=== PATIENT | female | born 1980 | race Caucasian/White ===

== ENCOUNTER → 2016-11-12 | Outpatient (CLI) | payer OTHER ==
[2016-09-21 12:00] VITALS: BP 144/88
[~2016-11-12] MED LIST: HYDR-971 PO; TRAM50TA PO
--- NOTE | 2016-11-12 14:16 | EKG ---
[facility] [address] [place] [address] Test Date: 2016-11-12 Test Time: 14:22:05 Pat Name: ISI SALAMANCA Department: Room: Gender: F Furnace Mechanic: CORETTA : 1980 Requested By: RAFAELA POND Order Number: [id number] Reading MD: Measurements Intervals [place] Rate: 79 P: 30 [place]: 174 QRS: 8 QRSD: 76 T: 29 QT: 356 QTc: 409 Interpretive Statements SINUS RHYTHM NO SPECIFIC ECG ABNORMALITIES RI6.01 Compared to ECG 06/05/2014 09:37:39 No significant changes
[2016-11-12 14:29] LABS: BASO # 0.1 x10^3/uL (0.0-0.2); BASO % 1 % (0-3); EOS % 3 % (0-3); HEMATOCRIT 41.9 % (36.0-47.0); HEMOGLOBIN 14.1 g/dL (12.0-15.5); LYMPH # 2.8 x10^3/uL (1.0-4.8); LYMPH % 35 % (24-48); MEAN CORPUSCULAR HEMOGLOBIN 32 pg (25-35); MEAN CORPUSCULAR HGB CONC 34 g/dL (31-37); MEAN CORPUSCULAR VOLUME 94 fL (79-100); MONO % 6 % (0-9); NEUT % 55 % (31-73); PLATELET COUNT 180 x10^3/uL (140-400); RED BLOOD COUNT 4.49 x10^6/uL (3.50-5.40); RED CELL DISTRIBUTION WIDTH 13.9 % (11.5-14.5)
[2016-11-12 14:48] LABS: ALBUMIN 3.2 g/dL (3.4-5.0); ALBUMIN/GLOBULIN RATIO 0.9 (1.0-1.7); CALCIUM 8.6 mg/dL (8.5-10.1); CREATININE 0.7 mg/dL (0.6-1.0); GFR 94.7; POTASSIUM 3.6 mmol/L (3.5-5.1); TOTAL BILIRUBIN 0.5 mg/dL (0.2-1.0); TOTAL PROTEIN 6.7 g/dL (6.4-8.2)
[2016-11-12 14:52] LABS: BILIRUBIN,URINE SMALL (NEG); GLUCOSE,URINE NEGATIVE (NEG); NITRITE,URINE NEGATIVE (NEG); PH,URINE 6.5; PROTEIN,URINE NEGATIVE (NEG-TRACE)
--- NOTE | 2016-11-12 14:52 | RAD ---
EXAM: Chest, 2 views. HISTORY: Hysterectomy. Pain. COMPARISON: 06/05/2014. FINDINGS: Frontal and lateral views of the chest are obtained. There is no infiltrate, effusion or pneumothorax. The heart is normal in size. IMPRESSION: No acute pulmonary finding.
[2016-11-12 15:10] LABS: BACTERIA,URINE MODERATE /HPF (0-FEW); RBC,URINE OCC /HPF (0-2); SQUAMOUS EPITHELIAL CELL,UR MANY /LPF; WBC,URINE RARE /HPF (0-4)
== END | disposition home or self-care (01) ==
LOC: SURGPAT 13:40
PROVIDERS: ATTEND Obstetrics & Gynecology
DX: Z01.812 Encounter for preprocedural laboratory examination (principal)
CPT/HCPCS: 36415; 71020; 80053; 81001; 85027; 87086; 93005

== ENCOUNTER 2016-11-20 06:05 | Observation (INO) | payer OTHER ==
[2016-11-20] VITALS (12 sets, daily range): BP systolic 102–125; BP diastolic 66–80
[~2016-11-20] VITALS: Ht 162.6 cm; Wt 108.6 kg
[~2016-11-20 06:05] MED LIST changes: +CLINDAMYCIN 600MG PREMIX 50 ML IV ONE
[2016-11-20] MEDS ORDERED: MIDAZOLAM HCL 2 MG/2 ML VIAL. ONE (06:59)
[2016-11-20] MEDS ORDERED: PROPOFOL 20 ML IV ONE (06:59)
[2016-11-20] MEDS ORDERED: LIDOCAINE 2% 100 MG/5 ML DISP.SYRIN. ONE (06:59)
[2016-11-20] MEDS ORDERED: FENTANYL PF 250 MCG/5 ML VIAL. ONE (06:59)
[2016-11-20] MEDS ORDERED: DEXAMETHASONE SOD PHOS 20 MG/5 ML VIAL. ONE (06:59)
[2016-11-20] MEDS ORDERED: ONDANSETRON PF 4 MG/2 ML VIAL. ONE (06:59)
[2016-11-20] MEDS ORDERED: FENTANYL PF 100 MCG/2 ML VIAL. IV PRN ×2 (07:00)
[2016-11-20] MEDS ORDERED: LIDOCAINE 1% 1 ML SYRINGE. ID PRN (07:00)
[2016-11-20] MEDS ORDERED: PROCHLORPERAZINE 10 MG/2 ML VIAL. IV PRN (07:00)
[2016-11-20] MEDS ORDERED: BUPIVACAINE-EPI 0.25%-1:200000 50 ML VIAL. ONE (07:00)
[2016-11-20] MEDS ORDERED: ROCURONIUM 50 MG/5 ML VIAL. ONE ×2 (07:00→07:07)
[2016-11-20] MEDS ORDERED: IV RINGERS,LACTATED 1000ML 1,000 ML IV SCH (07:00)
[2016-11-20] MEDS ORDERED: ONDANSETRON PF 4 MG/2 ML VIAL. IV PRN (07:00)
[2016-11-20] MEDS ORDERED: ESTROGENS, CONJ VAGINAL CREAM 30GM TUBE. ONE (07:01)
[2016-11-20 07:07] LABS: NEG OBC UR NEG; POS OBC UR POS
[2016-11-20] MEDS ORDERED: ACETAMINOPHEN INTRAVENOUS 100 ML IV ONE (07:16)
[2016-11-20] MEDS ORDERED: SCOPOLAMINE 1.5MG PATCH. TD ONE (07:22)
[2016-11-20] MEDS ORDERED: PHENYLEPHRINE in 0.9% NACL PF 1 MG/10 ML DISP.SYRIN. IV ONE (07:49)
[2016-11-20] MEDS ORDERED: GLYCOPYRROLATE 1 MG/5 ML VIAL. ONE (08:33)
[2016-11-20] MEDS ORDERED: NEOSTIGMINE METHYLSULFATE 5 MG/5 ML SYRINGE. ONE (08:34)
[2016-11-20] MEDS ORDERED: ZOLPIDEM 5 MG TABLET. PO PRN (09:00)
[2016-11-20] MEDS ORDERED: ESTRADIOL WEEKLY 0.1 MG PATCH. TD SCH (09:00)
[2016-11-20] MEDS ORDERED: KETOROLAC TROMETHAMINE 30 MG/ML SYRINGE. IV PRN (09:00)
[2016-11-20] MEDS ORDERED: DIPHENHYDRAMINE HCL 25 MG CAPSULE PO PRN (09:00)
[2016-11-20] MEDS ORDERED: HYDROCODONE/APAP 5/325MG TABLET. PO PRN (09:00)
[2016-11-20] MEDS ORDERED: LACTULOSE 20 GM/30 ML SOLUTION. PO PRN (09:00)
[2016-11-20] MEDS ORDERED: NALOXONE 0.4 MG/ML VIAL. IV PRN (09:00)
[2016-11-20] MEDS ORDERED: MAGNESIUM HYDROXIDE 2,400 MG/30 ML ORAL.SUSP. PO PRN (09:00)
[2016-11-20] MEDS ORDERED: CALCIUM CARBONATE 500 MG TAB.CHEW PO PRN (09:00)
--- NOTE | 2016-11-20 09:02 | PDOC ---
BRIEF OPERATIVE NOTE Date: Nov 20, 2016 Pre-Op Diagnosis menorrhagia, dysmenorrhea, chronic pelvic pain Post-Op Diagnosis same Procedure Performed LAVH/BSO Surgeon Dr. Sera Pond Cardiopulmonary Physical Therapist Dr. Selma Hatfield Anesthesiologist see anesthesia Anesthesia Type: General Blood Loss 70cc IV Fluid see anesthesia Urine Output 120cc clear via valentine Specimens Obtained cervix, uterus, bilateral tubes and ovaries Findings mild left sided adhesions to left IP ligament; small bilateral ovaries; RV uterus, normal appendix Complications none Additional Remarks [id number] SERA POND MD Nov 20, 2016 09:02
[2016-11-20] MEDS: HYDROMORPHONE 2 MG/ML VIAL. IV PRN ×5 (09:03→15:24)
[2016-11-20] MEDS: MORPHINE SULFATE 2 MG/ML DISP.SYRIN. IV PRN ×3 (09:25→15:26)
[2016-11-20] MEDS: NICOTINE 21MG PATCH. TD SCH (11:35)
[2016-11-20] MEDS: OXYCODONE/APAP 5/325 TABLET. PO PRN ×3 (12:19→23:12)
--- NOTE | 2016-11-20 15:17 | PDOC ---
SURGICAL PROGRESS NOTE Subjective Called to see the patient regarding vaginal bleeding. Ruth (nurse) called me saying pt got up to use the restroom, had been doing well for a while after surgery, eating, drinking and using restroom, even was asking about going home, but got up to use the restroom and heard a "pop" and stool full of blood. Initially called and asked pt to rest, check a hgb in 1-2 hours and re-evaluate , but Ruth called me back saying she saw large clots and was uncomfortable watching her with the amount of blood she was seeing, so I asked her to get her ready with stirups, speculum, gown, stitch,etc and I would be in. Upon my arrival here about 215 pt was up and ready and cleaned up they estimated her total blood loss about 200cc. Upon insertion of the speculum there was no active bleeding, no large clots, cuff appeared intact and I could probe it with large white Q tips and no active bleeding seen; watched for 5-10min and nothing. Took spec out, walked away to order stat sonogram and wait for premarin cream and vag packing and then reexamined about 15min later and still no accumulation and nothing pooling in vagina with no active bleeding or clots. I have no been here almost 45 min and seen no active bleeding, perineum dry and all spec exams negative. Will get sonogram to make sure nothing bleeding internally Vital Signs Vital Signs Date Time Temp Pulse Resp B/P Pulse Ox O2 Delivery O2 Flow Rate FiO2 11/20/16 10:10 97.9 78 18 116/70 92 Room Air 97.9 11/20/16 09:03 10.0 PATIENT HAS A ALCARAZ: No General: Alert, Oriented X3, Cooperative, mild distress HEENT: Atraumatic Abdomen: Soft, Other (all port sites c/d/i) Extremities: No clubbing, No cyanosis, No tenderness/swelling Skin: No rashes, No breakdown Neuro: Normal speech Psych/Mental Status: Mental status NL, Mood NL Labs Laboratory Tests Test 11/20/16 06:10 Urine Test Negative (NEG) Laboratory Tests Test 11/20/16 06:10 Urine Test Negative (NEG) Problem List Problems Medical Problems: (1) Chronic pelvic pain in female Status: Acute (2) Dysmenorrhea Status: Acute (3) Irregular menstrual bleeding Status: Acute (4) Menorrhagia Status: Acute Assessment/Plan POD #0 s/p LAVH/bso postoperative bleeding stat sono at bedside range scientist thinks questionable area 5cm at greatest that could be a small clot; no active bloodflow to area, no swirling or anything to suggest active cuff looked good too on sono talked with pt and range scientist and pt comfortable with no rescoping at this point and repeat sonogram in 4 hours to make sure stable and not growing if stable then would not take back to operating room will check hgb now and again in 4 hours also to make sure it is also stable Problems: RAFAELA POND MD Nov 20, 2016 15:17
--- NOTE | 2016-11-20 15:37 | OP ---
DATE OF SURGERY: 11/20/2016 PREOPERATIVE DIAGNOSES: Menorrhagia, dysmenorrhea, irregular bleeding with chronic pelvic pain, and recurrent ovarian cysts. POSTOPERATIVE DIAGNOSES: Menorrhagia, dysmenorrhea, irregular bleeding with chronic pelvic pain, and recurrent ovarian cysts. PROCEDURE: Laparoscopic assisted vaginal hysterectomy, bilateral salpingo-oophorectomy. SURGEON: Rafaela Orta MD, and Selma Hatfield MD. ANESTHESIA: General endotracheal. ESTIMATED BLOOD LOSS: 70 mL. URINE OUTPUT: 120 mL clear via Kelly catheter. FLUIDS: Please see Anesthesia records. SPECIMENS: Cervix, uterus, bilateral tubes and ovaries. COMPLICATIONS: None. FINDINGS: Very mild left sided adhesions to the left IP ligament, small bilateral cysts on the ovaries, retroverted uterus, normal appendix. DESCRIPTION OF PROCEDURE: This patient was taken to the operating room where general anesthesia was placed. The [facility] The patient's abdomen and vagina were prepped and draped in the normal sterile fashion. A Kelly catheter had been previously inserted under sterile technique. At this point, a timeout was performed. A bivalve speculum was placed in the patient's vagina. Single tooth tenaculum was used to grasp the anterior lip of the cervix. Approximately 10 mL of 0.25% Marcaine with epinephrine was used to circumferentially inject around the cervix for both hemodissection and hemostatic purposes later. The Valtchev uterine manipulator was then placed through the endocervical os, locked on the single tooth tenaculum, and the bivalve speculum was then removed. Top gloves were discarded and changed. Attention was then turned to the abdomen where a small infraumbilical skin incision was made over the previous existing scar. A curved Latricia was used to dissect through the subcuticular layer to the fascia. The 5 mm Visiport was used to directly enter the abdominal cavity. Opening patient pressure was 8 mmHg. Direct abdominal placement was confirmed via the laparoscope. Carbon dioxide gas was used to then appropriately insufflate the abdominal cavity to maintain a pressure of 15 mmHg. The patient was placed in Trendelenburg position where right and left lower quadrant ports were placed under direct visualization with 5 mm Ethicon atraumatic ports without difficulty. The LigaSure Advance was used to then go in and cauterize and cut the left round ligament, creating a window in the mesosalpinx, creating the bladder flap sharply across with the monopolar tip, elevating the left tube and ovary, using the [place] to gently pull back the adhesions on the left IP ligament down and out of the way, and then finding the ureter coursing very deep in the pelvis on this side, staying high on the IP ligament, cauterizing and cutting, taking the left tube and ovary per patient request, meeting to that opening in the mesosalpinx, then going down and skeletonizing getting down to the uterines and cauterizing them x 2 and cutting them as well on this side. Exact same thing was done on the right side first starting at the round ligament, cauterizing and cutting, creating that window in the mesosalpinx, going down and further meeting the bladder flap anteriorly, elevating the right tube and ovary, again finding the ureter coursing a little bit higher on this side, but still very low from where we were going on the pelvic wall, staying high on the IP ligament right under the ovary, cauterizing and cutting it, again getting to that window and then skeletonizing and getting the uterines on this side. The uterus did levy very well and then crossing contralaterally, staying vertical and hugging the cervix, making sure the bladder was down, going down to the uterosacral ligaments through the cardinal and broad ligaments on both sides, cauterizing and cutting with the LigaSure Advance. Once this was done, everything was removed from the abdomen and attention was turned vaginally. The single tooth and Valtchev were removed. A weighted speculum was placed in the patient's vagina. Thyroid Kamilah clamps were placed on the anterior and posterior lips of the cervix respectively. A scalpel was used to make a circumferential incision in the cervix. The anterior cul-de-sac was actually sharply entered and the bladder blade was reinserted inside this. The cervix was elevated and the posterior cul-de-sac was sharply entered with the Chung scissors and a #0 Vicryl stitch was used to secure the posterior peritoneum to the vaginal cuff here and tagged with a curved Latricia clamp and the needle was cut and passed off. The short weighted speculum was removed and replaced with a long weighted Alanna speculum. At this point, curved Latosha clamps x 2 were placed on the patient's left uterosacral ligament. They were doubly clamped with clifton Reina with curved Chung scissors and suture ligated x 2 with #0 Vicryl. The second one was taken through the vaginal cuff securing the uterosacral ligament to the vaginal cuff and it was tagged with a straight Latricia clamp and the needle was cut and passed off. This was done exactly the same on the patient's right side, double clamping the uterosacrals with curved Latosha's, cutting with Chung scissors, suture ligating x 2 with #0 Vicryl and again taking the second one through the vaginal cuff securing uterosacral ligament to the vaginal cuff, tagging it with a straight Latricia clamp and cutting and passing off the needle. The remaining pedicles on both sides were delineated with the curved clamps and they were cauterized with the vaginal LigaSure Max and cut on both sides. This freed up the entire uterus. The cervix, uterus, bilateral tubes and ovaries were passed off in toto for permanent pathology. The long weighted speculum was removed and replaced with a short weighted. A sponge stick was used to examine the pedicles. The anterior bladder peritoneum was grasped with a long Allis. 2-0 Vicryl was taken through the anterior bladder peritoneum, left uterosacral ligament, posterior peritoneum, and right uterosacral ligament, thus closing the peritoneum in a pursestring like fashion. The right and left uterosacral tags were cut at this point. Only the vaginal cuff tag remained. A new full length 2-0 Vicryl was used to close the cuff in an anterior to posterior running locked fashion and it was tied to that posterior tag at the end. The vaginal cuff was hemostatic. All instruments were removed from the vagina. All gloves were discarded and changed. . Copious irrigation revealed hemostasis. The right and left pericolic gutters were clear. The cul-de-sac was clear. We saw a normal appendix. Everything looked good, so Tisseel was placed over all the pedicles. The right and left lower quadrant ports were removed under direct visualization. These 2 were hemostatic. Prior to looking, we did look at the umbilical port as she had a little bit of fatty tissue around it. It was just her anterior abdominal wall. There were no adhesions, nothing there, so we had already checked this port and made sure it was clear. Gas was released from the umbilical port. All three port sites were closed with 4-0 nylon at the level of the skin and injected with a total of 10 mL of local. RAFAELA ORTA MD DR: DAVE/anjali JOB#: [id number] / [id number]
[2016-11-20] MEDS: ESTROGENS, CONJ VAGINAL CREAM 30GM TUBE. VG SCH (15:50)
--- NOTE | 2016-11-20 16:12 | RAD ---
Indication post laparoscopic hysterectomy. Vaginal bleeding. Evaluate for bleeding. Transabdominal scans were obtained. This was supplemented with additional translabial imaging There is a hypoechoic nonperistaltic mass just to the right of the uterine bed measuring approximately 5 cm in greatest dimension. The etiology is unclear but in the proper clinical setting this could represent a small hematoma. Significant free fluid in the pelvis was not seen. IMPRESSION: 5 cm mass in the pelvis of uncertain etiology but, in the proper clinical setting, would be compatible with a hematoma. Significant free fluid in the pelvis is not seen
--- NOTE | 2016-11-20 20:26 | RAD ---
PROCEDURE Limited pelvic ultrasound. HISTORY Followup hematoma. Status post laparoscopic hysterectomy. Postoperative bleeding. COMPARISON Pelvic ultrasound earlier same day at 1500 hours. FINDINGS Transabdominal imaging was performed. Again seen to the right of midline is complex fluid collection in the pelvis. This now measures 9.1 x 6.9 x 6.6 centimeters (previously 2.1 x 2.7 x 2.8 centimeters). There is no internal vascularity. This is favored represent enlargement of hematoma. There is now seen within the left hemipelvis a pocket of free fluid which measures 5.1 x 4.3 x 3.5 centimeters. IMPRESSION Interval enlargement of pelvic hematoma. Electronically signed by: Graeme Perea MD (Nov 20, 2016 20:26:03)
[2016-11-20] MEDS: ONDANSETRON PF 4 MG/2 ML VIAL. IV PRN (22:21)
[2016-11-20] MEDS: MAG HYDROX/AL HYDROX/SIMETH 30 ML ORAL.SUSP PO PRN (22:21)
[2016-11-21] VITALS (8 sets, daily range): BP systolic 99–119; BP diastolic 59–87
[2016-11-21] MEDS: MORPHINE SULFATE 2 MG/ML DISP.SYRIN. IV PRN ×4 (02:14→22:23)
[2016-11-21] MEDS: ONDANSETRON PF 4 MG/2 ML VIAL. IV PRN ×2 (05:16→22:23)
--- NOTE | 2016-11-21 06:21 | RAD ---
Ultrasound pelvis Indication: [Follow up for hematoma Comparison: Pelvic ultrasound from 11/20/2016 Technique: Multiple real-time grayscale sonographic images were obtained over the pelvis. Findings: Again noted are pelvic fluid collections. The fluid collection in the right hemipelvis is heterogeneous and now measures 12.3 x 12.1 x 10.6 centimeters compared with 9.1 x 6.9 x 6.6 centimeters. The left pelvic fluid collection now measures 7.0 x 4.8 x 3.4 centimeters compared with 5.1 x 4.3 x 3.5 centimeters. Impression: Pelvic fluid collections felt to represent hematomas appear to be enlarging when compared to yesterday's exam. Electronically signed by: Adonay Frankel (Nov 21, 2016 06:18:59)
[2016-11-21 06:52] LABS: CALCIUM 8.6 mg/dL (8.5-10.1); CREATININE 0.7 mg/dL (0.6-1.0); GFR 94.7
[2016-11-21] MEDS ORDERED: IV RINGERS,LACTATED 1000ML 1,000 ML IV SCH ×2 (08:27→19:00)
[2016-11-21] MEDS ORDERED: LIDOCAINE 1% 1 ML SYRINGE. ID PRN ×2 (08:30→19:00)
[2016-11-21] MEDS ORDERED: FENTANYL PF 100 MCG/2 ML VIAL. IV PRN ×3 (08:30→19:00)
[2016-11-21] MEDS ORDERED: HYDROMORPHONE 2 MG/ML VIAL. IV PRN ×2 (08:30→19:00)
[2016-11-21] MEDS ORDERED: MORPHINE SULFATE 2 MG/ML DISP.SYRIN. IV PRN ×2 (08:30→19:00)
[2016-11-21] MEDS ORDERED: PROCHLORPERAZINE 10 MG/2 ML VIAL. IV PRN ×2 (08:30→19:00)
[2016-11-21] MEDS ORDERED: ONDANSETRON PF 4 MG/2 ML VIAL. IV PRN ×2 (08:30→19:00)
--- NOTE | 2016-11-21 08:31 | PDOC ---
SURGICAL PROGRESS NOTE Subjective pt stable, hungry no active bleeding. Up to chair and steady on feet Vital Signs Vital Signs Date Time Temp Pulse Resp B/P Pulse Ox O2 Delivery O2 Flow Rate FiO2 11/21/16 05:33 18 Room Air 11/21/16 05:30 97.9 83 112/74 99 97.9 11/20/16 09:03 10.0 I&O Intake and Output 11/21/16 07:00 Intake Total 160 ml Output Total 490 ml Balance -330 ml Intake Oral 160 ml Output Urine Total 490 ml # Voids 4 PATIENT HAS A ALCARAZ: No General: Alert HEENT: Atraumatic Heart: Regular rate Abdomen: Soft, No tenderness, Other (all port sites c/d/i) Extremities: No clubbing, No cyanosis, No edema Skin: No rashes, No breakdown Neuro: Normal gait, Normal speech Psych/Mental Status: Mental status NL, Mood NL Labs Laboratory Tests Test 11/20/16 06:10 11/20/16 15:42 11/20/16 18:20 11/21/16 05:10 Urine Test Negative (NEG) Hematocrit 36.4% (36.0-47.0) 36.9% (36.0-47.0) 31.1% (36.0-47.0) Sodium Level 140mmol/L (136-145) Potassium Level 4.0mmol/L (3.5-5.1) Chloride Level 103mmol/L (98-107) Carbon Dioxide Level 27mmol/L (21-32) Anion Gap 10 (6-14) Blood Urea Nitrogen 10mg/dL (7-20) Creatinine 0.7mg/dL (0.6-1.0) Estimated GFR (Cockcroft-Gault) 94.7 Glucose Level 121mg/dL (70-99) Calcium Level 8.6mg/dL (8.5-10.1) Laboratory Tests Test 11/20/16 15:42 11/20/16 18:20 11/21/16 05:10 Hematocrit 36.4% (36.0-47.0) 36.9% (36.0-47.0) 31.1% (36.0-47.0) Sodium Level 140mmol/L (136-145) Potassium Level 4.0mmol/L (3.5-5.1) Chloride Level 103mmol/L (98-107) Carbon Dioxide Level 27mmol/L (21-32) Anion Gap 10 (6-14) Blood Urea Nitrogen 10mg/dL (7-20) Creatinine 0.7mg/dL (0.6-1.0) Estimated GFR (Cockcroft-Gault) 94.7 Glucose Level 121mg/dL (70-99) Calcium Level 8.6mg/dL (8.5-10.1) I have reviewed the following sono, nursing, labs, vitals Cardiovascular: No pertinent hx Pulmonary: No pertinent hx GI: No pertinent hx Heme/Onc: No pertinent hx Psych: No pertinent hx Renal/: No pertinent hx Endocrine: No pertinent hx Dermatology: No pertinent hx Problem List Problems Medical Problems: (1) Chronic pelvic pain in female Status: Acute (2) Dysmenorrhea Status: Acute (3) Irregular menstrual bleeding Status: Acute (4) Menorrhagia Status: Acute Assessment/Plan POD#1 s/p LAVH/BSO had PO bleed yesterday, packing removed and was bone dry this morning, no further vaginal bleeding at all all abdominal port sites all c/d/i but sonogram shows increasing right and left hematomas initially yesterday afternoon had right side 5cm, then last night right side grew to 9.1 and added a left fluid colleciton at 5cm now this morning right side went from 9 to 12.3 and left side went from 5 to 7 long talk with patient and her about options since still very stable of watching until this afternoon and repeating vs. scope either way we discussed keeping her here overnight and watching her and checking one more time in the morning to make sure stable then d/c hopefully tomorrow they chose scope so it is scheduled for 4pm this afternoon and will eat breakfast then NPO after that for repeat operative scope with evacuation of blood clot and look for any source of bleeding Problems: RAFAELA POND MD Nov 21, 2016 08:31
[2016-11-21] MEDS: SIMETHICONE 80 MG TAB.CHEW PO PRN (08:43)
[2016-11-21] MEDS: OXYCODONE/APAP 5/325 TABLET. PO PRN ×3 (08:43→23:51)
[2016-11-21] MEDS ORDERED: PROCHLORPERAZINE 10 MG/2 ML VIAL. IV ONE (09:15)
[2016-11-21] MEDS ORDERED: SEVOFLURANE 61 TO 120 MINUTES. IH ONE (11:24)
[2016-11-21] MEDS ORDERED: MIDAZOLAM HCL 2 MG/2 ML VIAL. ONE (11:24)
[2016-11-21] MEDS ORDERED: GLYCOPYRROLATE 1 MG/5 ML VIAL. ONE (11:25)
[2016-11-21] MEDS ORDERED: FENTANYL PF 100 MCG/2 ML VIAL. ONE ×4 (11:25→18:46)
[2016-11-21] MEDS ORDERED: PROPOFOL 20 ML IV ONE (11:25)
[2016-11-21] MEDS ORDERED: LIDOCAINE 2% 100 MG/5 ML DISP.SYRIN. ONE ×2 (11:25→18:11)
[2016-11-21] MEDS ORDERED: NEOSTIGMINE METHYLSULFATE 5 MG/5 ML SYRINGE. ONE (11:25)
[2016-11-21] MEDS ORDERED: ONDANSETRON PF 4 MG/2 ML VIAL. ONE (11:25)
[2016-11-21] MEDS ORDERED: KETOROLAC 60 MG/2 ML SYRINGE FOR OR. ONE (11:26)
[2016-11-21] MEDS ORDERED: DEXAMETHASONE SOD PHOS 20 MG/5 ML VIAL. ONE ×2 (11:26→16:16)
[2016-11-21] MEDS ORDERED: ROCURONIUM 50 MG/5 ML VIAL. ONE (11:30)
[2016-11-21] MEDS ORDERED: SUCCINYLCHOLINE 200 MG/10 ML VIAL. ONE (14:48)
[2016-11-21] MEDS ORDERED: BUPIVACAINE-EPI 0.25%-1:200000 MPF 30 ML VIAL. ONE (14:59)
[2016-11-21] MEDS: 0.9 % SODIUM CHLORIDE 10 ML DISP.SYRIN. IV PRN (15:00)
[2016-11-21] MEDS ORDERED: CLINDAMYCIN PREMIX 600 MG/50 ML BAG IV ONE (16:11)
[2016-11-21] MEDS ORDERED: ESMOLOL 100 MG/10 ML VIAL. IV ONE (16:16)
--- NOTE | 2016-11-21 18:34 | PDOC ---
BRIEF OPERATIVE NOTE Date: Nov 21, 2016 Pre-Op Diagnosis postoperative hematoma Post-Op Diagnosis same Procedure Performed operative laparoscopy with evacuation of pelvic hematoma and exam of abdominal cavity Surgeon Dr. Sera Pond Whistle P[employer] Dr. Selma Hatfield Anesthesiologist Dr. Guzman Anesthesia Type: General Blood Loss 500cc clot evacuated IV Fluid see anesthesia records Urine Output straight cath prior to procedure Specimens Obtained hematoma sucked out but nothing sent Findings 500cc generalized hematoma; gaping umbilical port once blood clot sucked out no evidence of any active bleeding only thing that even looked remotely suspicious was the umbilical port so 0- vicryl stitch placed with PMI Complications none Additional Remarks [id number] SERA POND MD Nov 21, 2016 18:34
[2016-11-21] MEDS ORDERED: PROCHLORPERAZINE 10 MG/2 ML VIAL. ONE (18:46)
[2016-11-21] MEDS: FENTANYL PF 100 MCG/2 ML VIAL. IV PRN ×4 (19:05→19:55)
[2016-11-21] MEDS: DIPHENHYDRAMINE 50 MG/ML VIAL IV PRN (20:25)
[2016-11-21] MEDS: NICOTINE 21MG PATCH. TD SCH (20:25)
[2016-11-21] MEDS: ESTROGENS, CONJ VAGINAL CREAM 30GM TUBE. VG SCH (21:00)
[2016-11-21] MEDS: MAG HYDROX/AL HYDROX/SIMETH 30 ML ORAL.SUSP PO PRN (21:21)
[2016-11-22] MEDS: MORPHINE SULFATE 2 MG/ML DISP.SYRIN. IV PRN ×2 (01:06→06:28)
[2016-11-22 01:10] VITALS: BP 109/72
[2016-11-22] MEDS ORDERED: MORPHINE SULFATE 2 MG/ML DISP.SYRIN. IV PRN (01:30)
[2016-11-22] MEDS: DIPHENHYDRAMINE 50 MG/ML VIAL IV PRN (02:27)
[2016-11-22] MEDS: MAG HYDROX/AL HYDROX/SIMETH 30 ML ORAL.SUSP PO PRN (02:27)
[2016-11-22 02:30] VITALS: BP 114/66
[2016-11-22 04:25] VITALS: BP 123/74
[2016-11-22] MEDS: 0.9 % SODIUM CHLORIDE 10 ML DISP.SYRIN. IV PRN ×2 (04:25→06:29)
[2016-11-22 04:46] LABS: BASO % 0 % (0-3); EOS % 0 % (0-3); HEMATOCRIT 27.5 % (36.0-47.0); HEMOGLOBIN 9.1 g/dL (12.0-15.5); LYMPH # 1.7 x10^3/uL (1.0-4.8); LYMPH % 17 % (24-48); MEAN CORPUSCULAR HEMOGLOBIN 32 pg (25-35); MEAN CORPUSCULAR HGB CONC 33 g/dL (31-37); MEAN CORPUSCULAR VOLUME 95 fL (79-100); MONO % 8 % (0-9); NEUT % 76 % (31-73); PLATELET COUNT 164 x10^3/uL (140-400); RED BLOOD COUNT 2.88 x10^6/uL (3.50-5.40); RED CELL DISTRIBUTION WIDTH 14.1 % (11.5-14.5); WHITE BLOOD COUNT 9.8 x10^3/uL (4.0-11.0)
[2016-11-22] MEDS: SIMETHICONE 80 MG TAB.CHEW PO PRN (08:42)
[2016-11-22] MEDS: OXYCODONE/APAP 5/325 TABLET. PO PRN (08:42)
--- NOTE | 2016-11-22 09:56 | OP ---
DATE OF SURGERY: 11/21/2016 PREOPERATIVE DIAGNOSIS: A postoperative increasing hematoma seen on sonogram after a postoperative bleed yesterday afternoon. POSTOPERATIVE DIAGNOSIS: A postoperative increasing hematoma seen on sonogram after a postoperative bleed yesterday afternoon. PROCEDURE: An operative laparoscopy with evacuation of a pelvic hematoma and exam of the intra-abdominal cavity. SURGEON: Dr. Rafaela Pond STAINING MACHINE OPERATOR: Selma Hatfield MD ANESTHESIOLOGIST: Dr. Mills ANESTHESIA: General. ESTIMATED BLOOD LOSS: 500 mL of hematoma evacuated. No active bleeding was seen. IV FLUIDS: Please see anesthesia records. URINE OUTPUT: A straight cath prior to procedure. SPECIMEN OBTAINED: Just a hematoma sucked out, but nothing was sent for pathology. FINDINGS: A 500 mL of generalized hematoma. The pelvic cuff was hemostatic. There was no active bleeding at all from the cuff or any of the sites down in the pelvis. The right and left pericolic gutters looked clear. The right and left lower quadrant ports were clear. The only thing that looked remotely suspicious was, and yesterday we even notice there was a little bit of gaping at the umbilical port like subcuticular fat coming down around it, I think yesterday I even dictated that, it looked like there might have been an adhesion or something because we kept seeing some fat or some yellow around the port, and when we looked up at it, it was just like a subcuticular fat coming down around the umbilical port. The umbilical port was a little bit larger and we could see into the subcutaneous and it kept coming back the port there and it kept insufflating the subcutaneous when the port would pull back, so that was the only thing that was even remotely suspicious and it was kind of a little bit possible drip, I mean nothing was actively seen bleeding, but it just looked a little bit different and suspicious because I could see into the subcutaneous and you could see the area below, so at the end after doing everything and evacuating everything and looking at everything else, we did go ahead and get a PMI and put a # 0 Vicryl stitch in this umbilical area just as a precautionary to have an extra thing to close it and make sure there was nothing open or bleeding at all here, but everything else was hemostatic. We did end up putting just as again precautionary measure not because anything was bleeding, but we put some more Edgar over the cuff just to make sure that we could actually still see some of the Tesio from yesterday that we put more Edgar down just to make sure it was okay and there was nothing going on. DESCRIPTION OF PROCEDURE: This patient was taken to the operating room where general anesthesia was placed. The patient was placed in a dorsal lithotomy position in [facility]. The patient's abdomen and vagina were prepped and draped in the normal sterile fashion and a straight cath urine was performed. At this point, I did insert a speculum to look at the cuff absolutely hemostatic, cuff looked good. I did put a sponge stick in the vagina. Top gloves were discarded and changed. Attention was turned to the abdomen. The umbilical port and right lower quadrant port sutures were clipped. I left the left wound closed. So, I ended up using a Latricia clamp and just reopening the same incision and putting the umbilical port in, watched the right lower quadrant port come in. The right lower quadrant port was hemostatic. There was nothing there before coming in, so it was dry, I could see that immediately. There was definitely a large hematoma in the pelvis, but I was able to get enough gas and see that come in where I could at least start irrigating with the suction chief engineer through the right lower quadrant port. Once I was able to do that, I was able to see the left port as well, it was also hemostatic, so it was clipped and I got another port in 5 mm, these were all 5 mm disposable Ethicon port, so I could get like [place] or probe to retract with. The only port I could not clearly see when I tried to move the camera to another port was the umbilical port because, like I said, it kept kind of gaping open and I could see the subcutaneous and I kept popping back and get my camera bloody, so I could say that was the only one that was even remotely suspicious and that was probably because it was going into the subcutaneous area and then a larger opening, but still there is wet staying in, so that is why at the end we did end up putting a stitch in there, but that was the only one that was even remotely suspicious for any kind of bleeding. I looked at the right upper quadrant, the right and left pericolic gutters once the clot was evacuated. I even called Dr. Hatfield after doing this for 30-40 minutes and getting it all sucked out just to get a second pair of eyes and make sure she did not see anything bleeding that I did not and have her look at this umbilical area with me better and get another pair of hands because, unfortunately due to the patient's body habitus, the ports kept coming out. I ended up getting too long 5 mm ports, but after insufflating the subcutaneous a few times through that umbilical port moving around and not being able to move it adequately to see in the upper quadrants and stuff, it was hard to get him to stay in, so I ended up putting a fourth suprapubic port in. I ended up using the 3 from yesterday at the umbilical right and left lower quadrant, I ended up putting as a suprapubic port in as well under direct visualization and that way I could get a different look and a better look at that umbilical one from a clean new viewpoint and not right next to it, so I did that and I called her in and she looked at everything again. I evacuated 500 mL of blood clot and did no irrigation prior to her coming. When she got there, she looked again herself as an independent pair of eyes and could not find anything bleeding either, did agree the only thing that looked remotely suspicious was the umbilical port, but again, she did not see anything actively bleeding from that either, but just to be sure we both agreed that putting a stitch in here would probably be a good idea, so we got the PMI and we did a # 0 Vicryl stitch and put it through and we used the Maryland to hold it and pull it through and tied the fascia, closed the tear, and then we looked at it again leaving the camera and we got a much better look once it was closed and there was nothing actively bleeding from this at all now and it looked better, but prior to doing all that, like I said, she examined again the right upper quadrant, right and left pericolic gutter, the cuff, everything else herself, and she did some irrigation, so we put ____ of irrigation as well once she got there and irrigated. After the irrigation and after we can find anything active, we decided to go ahead and place Edgar over the cuff, it could not hurt, and all the pedicle sites down there, we did that, and then, we did the PMI closure of the umbilical port and we re-examined the right and left lower quadrant ports. The umbilical port was closed at this point, so we were using the suprapubic. We ended up moving the camera back to the right lower quadrant port because we had watched it came out a few times and put it in, I knew it was not bleeding even on entry, so the left one came out and the umbilical port at this point was closed and we watched the suprapubic come out as it was the new one and made sure it was clear and it was still. Nothing was re-accumulating in the pelvis. After sucking it out and watching it for a long time and gas was released from that right lower quadrant port, all four port sites were closed with 4-0 nylon at the skin and injected with a total of 10 mL of the local. The vaginal sponge stick was taken out and it was dry as well. The patient was awakened from anesthesia and is being taken to recovery room in stable condition. RAFAELA POND MD DR: DAVE/anjali JOB#: [id number] / [id number]
--- NOTE | 2016-11-22 10:54 | PDOC ---
SURGICAL PROGRESS NOTE Subjective Doing well without complaints. Voiding without catheter. Nausea gone. Ambulating well and no more vaginal bleeding at all. Wants to go home. wanting her to have another sono before leaving since blood count did not drop initially when had hematoma Vital Signs Vital Signs Date Time Temp Pulse Resp B/P Pulse Ox O2 Delivery O2 Flow Rate FiO2 11/22/16 08:42 18 11/22/16 06:28 Room Air 11/22/16 04:25 98.0 74 123/74 98.0 11/21/16 22:25 97 11/21/16 18:40 10 I&O Intake and Output 11/22/16 07:00 Intake Total 2680 ml Output Total 600 ml Balance 2080 ml Intake Oral 680 ml IV Total 2000 ml Output Urine Total 100 ml Estimated Blood Loss 500 ml # Voids 8 PATIENT HAS A ALCARAZ: No General: Alert, Oriented X3, Cooperative, No acute distress HEENT: Atraumatic Heart: Regular rate Abdomen: Soft, No tenderness, No masses, Other (all port sites c/d/i) Extremities: No clubbing, No cyanosis, No edema, No tenderness/swelling Skin: No rashes, No breakdown Neuro: Normal speech Psych/Mental Status: Mental status NL, Mood NL Labs Laboratory Tests Test 11/20/16 15:42 11/20/16 18:20 11/21/16 05:10 11/21/16 14:15 Hematocrit 36.4% (36.0-47.0) 36.9% (36.0-47.0) 31.1% (36.0-47.0) 31.2% (36.0-47.0) Sodium Level 140mmol/L (136-145) Potassium Level 4.0mmol/L (3.5-5.1) Chloride Level 103mmol/L (98-107) Carbon Dioxide Level 27mmol/L (21-32) Anion Gap 10 (6-14) Blood Urea Nitrogen 10mg/dL (7-20) Creatinine 0.7mg/dL (0.6-1.0) Estimated GFR (Cockcroft-Gault) 94.7 Glucose Level 121mg/dL (70-99) Calcium Level 8.6mg/dL (8.5-10.1) Test 11/21/16 19:23 11/22/16 04:05 Hematocrit 28.4% (36.0-47.0) 27.5% (36.0-47.0) White Blood Count 9.8x10^3/uL (4.0-11.0) Red Blood Count 2.88x10^6/uL (3.50-5.40) Hemoglobin 9.1g/dL (12.0-15.5) Mean Corpuscular Volume 95fL (79-100) Mean Corpuscular Hemoglobin 32pg (25-35) Mean Corpuscular Hemoglobin Concent 33g/dL (31-37) Red Cell Distribution Width 14.1% (11.5-14.5) Platelet Count 164x10^3/uL (140-400) Neutrophils (%) (Auto) 76% (31-73) Lymphocytes (%) (Auto) 17% (24-48) Monocytes (%) (Auto) 8% (0-9) Eosinophils (%) (Auto) 0% (0-3) Basophils (%) (Auto) 0% (0-3) Neutrophils # (Auto) 7.4x10^3uL (1.8-7.7) Lymphocytes # (Auto) 1.7x10^3/uL (1.0-4.8) Monocytes # (Auto) 0.7x10^3/uL (0.0-1.1) Eosinophils # (Auto) 0.0x10^3/uL (0.0-0.7) Basophils # (Auto) 0.0x10^3/uL (0.0-0.2) Laboratory Tests Test 11/21/16 14:15 11/21/16 19:23 11/22/16 04:05 Hematocrit 31.2% (36.0-47.0) 28.4% (36.0-47.0) 27.5% (36.0-47.0) White Blood Count 9.8x10^3/uL (4.0-11.0) Red Blood Count 2.88x10^6/uL (3.50-5.40) Hemoglobin 9.1g/dL (12.0-15.5) Mean Corpuscular Volume 95fL (79-100) Mean Corpuscular Hemoglobin 32pg (25-35) Mean Corpuscular Hemoglobin Concent 33g/dL (31-37) Red Cell Distribution Width 14.1% (11.5-14.5) Platelet Count 164x10^3/uL (140-400) Neutrophils (%) (Auto) 76% (31-73) Lymphocytes (%) (Auto) 17% (24-48) Monocytes (%) (Auto) 8% (0-9) Eosinophils (%) (Auto) 0% (0-3) Basophils (%) (Auto) 0% (0-3) Neutrophils # (Auto) 7.4x10^3uL (1.8-7.7) Lymphocytes # (Auto) 1.7x10^3/uL (1.0-4.8) Monocytes # (Auto) 0.7x10^3/uL (0.0-1.1) Eosinophils # (Auto) 0.0x10^3/uL (0.0-0.7) Basophils # (Auto) 0.0x10^3/uL (0.0-0.2) I have reviewed the following labs, vitals, nursing Cardiovascular: No pertinent hx Pulmonary: No pertinent hx GI: No pertinent hx Heme/Onc: No pertinent hx Infectious disease: No pertinent hx Renal/: No pertinent hx Endocrine: No pertinent hx Dermatology: No pertinent hx Problem List Problems Medical Problems: (1) Chronic pelvic pain in female Status: Acute (2) Dysmenorrhea Status: Acute (3) Irregular menstrual bleeding Status: Acute (4) Menorrhagia Status: Acute Assessment/Plan POD#2 s/p LAVH/BSO, POD#1 s/p operative scope with evacuation of hematoma awaiting final sono this am to ensure ok then dc to home NPV x 6 weeks light/limited activity x 2 weeks keep scheduled appt with me in one week call or return sooner if has any questions or concerns not limited to but including pain unrelieved with pain pills, increased or unexplained vaginal bleeding or T>100.4 already has percocet at home and may alternate ibuprofen in between time Problems: RAFAELA POND MD Nov 22, 2016 10:54
[2016-11-22 11:10] VITALS: BP 128/81
--- NOTE | 2016-11-22 11:12 | PDOC3 ---
Discharge Summary Visit Information Date of Admission: Nov 20, 2016 Date of Discharge: Nov 22, 2016 Admitting Diagnosis: menorrhagia, dysmenorrhea, pelvic pain Final Diagnosis Problems Medical Problems: (1) Chronic pelvic pain in female Status: Acute (2) Dysmenorrhea Status: Acute (3) Irregular menstrual bleeding Status: Acute (4) Menorrhagia Status: Acute Brief Hospital Course Allergies Allergies Coded Allergies Type Severity Reaction Last Updated Verified Penicillins Allergy Intermediate 11/22/16 Yes Vital Signs Vital Signs Date Time Temp Pulse Resp B/P Pulse Ox O2 Delivery O2 Flow Rate FiO2 11/22/16 08:42 18 11/22/16 06:28 Room Air 11/22/16 04:25 98.0 74 123/74 98.0 11/21/16 22:25 97 11/21/16 18:40 10 Lab Results Laboratory Tests Test 11/20/16 15:42 11/20/16 18:20 11/21/16 05:10 11/21/16 14:15 Hematocrit 36.4% (36.0-47.0) 36.9% (36.0-47.0) 31.1% (36.0-47.0) 31.2% (36.0-47.0) Sodium Level 140mmol/L (136-145) Potassium Level 4.0mmol/L (3.5-5.1) Chloride Level 103mmol/L (98-107) Carbon Dioxide Level 27mmol/L (21-32) Anion Gap 10 (6-14) Blood Urea Nitrogen 10mg/dL (7-20) Creatinine 0.7mg/dL (0.6-1.0) Estimated GFR (Cockcroft-Gault) 94.7 Glucose Level 121mg/dL (70-99) Calcium Level 8.6mg/dL (8.5-10.1) Test 11/21/16 19:23 11/22/16 04:05 Hematocrit 28.4% (36.0-47.0) 27.5% (36.0-47.0) White Blood Count 9.8x10^3/uL (4.0-11.0) Red Blood Count 2.88x10^6/uL (3.50-5.40) Hemoglobin 9.1g/dL (12.0-15.5) Mean Corpuscular Volume 95fL (79-100) Mean Corpuscular Hemoglobin 32pg (25-35) Mean Corpuscular Hemoglobin Concent 33g/dL (31-37) Red Cell Distribution Width 14.1% (11.5-14.5) Platelet Count 164x10^3/uL (140-400) Neutrophils (%) (Auto) 76% (31-73) Lymphocytes (%) (Auto) 17% (24-48) Monocytes (%) (Auto) 8% (0-9) Eosinophils (%) (Auto) 0% (0-3) Basophils (%) (Auto) 0% (0-3) Neutrophils # (Auto) 7.4x10^3uL (1.8-7.7) Lymphocytes # (Auto) 1.7x10^3/uL (1.0-4.8) Monocytes # (Auto) 0.7x10^3/uL (0.0-1.1) Eosinophils # (Auto) 0.0x10^3/uL (0.0-0.7) Basophils # (Auto) 0.0x10^3/uL (0.0-0.2) Laboratory Tests Test 11/21/16 14:15 11/21/16 19:23 11/22/16 04:05 Hematocrit 31.2% (36.0-47.0) 28.4% (36.0-47.0) 27.5% (36.0-47.0) White Blood Count 9.8x10^3/uL (4.0-11.0) Red Blood Count 2.88x10^6/uL (3.50-5.40) Hemoglobin 9.1g/dL (12.0-15.5) Mean Corpuscular Volume 95fL (79-100) Mean Corpuscular Hemoglobin 32pg (25-35) Mean Corpuscular Hemoglobin Concent 33g/dL (31-37) Red Cell Distribution Width 14.1% (11.5-14.5) Platelet Count 164x10^3/uL (140-400) Neutrophils (%) (Auto) 76% (31-73) Lymphocytes (%) (Auto) 17% (24-48) Monocytes (%) (Auto) 8% (0-9) Eosinophils (%) (Auto) 0% (0-3) Basophils (%) (Auto) 0% (0-3) Neutrophils # (Auto) 7.4x10^3uL (1.8-7.7) Lymphocytes # (Auto) 1.7x10^3/uL (1.0-4.8) Monocytes # (Auto) 0.7x10^3/uL (0.0-1.1) Eosinophils # (Auto) 0.0x10^3/uL (0.0-0.7) Basophils # (Auto) 0.0x10^3/uL (0.0-0.2) Brief Hospital Course Ms. Fernando is a 36 old female who presented with the above symptoms. She underwent and LAVH/BSO the afternoon of her surgery I was called in to see pt for her passing blood clots vaginally. Vaginal cuff looked good, but sono revealed pelvic hematoma. We watched this as she was clinically stable and her blood count never dropped. However the hematoma continued to grow even with her stable it was decided to scope her and evacuate the hematoma and do exploratory surgery to look for any source of bleeding. 500cc of clot was evacuated and no obvious source of bleeding was seen. She has felt much better since the 2nd surgery and wants to go home. We did one last sonogram this am to ensure pelvis was ok, sono done at bedside and sono tech did not see any evidence of residual or reaccumulating hematoma. Pt and are happy and want to go home Discharge Information Condition at Discharge: Improved Follow Up: Weeks Disposition/Orders: D/C to Home Scheduled Tramadol Hcl (Tramadol Hcl) 1 TAB PO PRN Q6HRS (Reported) Scheduled PRN Hydrocodone/Apap 5-325 ([place] 5-325 Tablet) 1 TAB PO TID PRN PRN PAIN (Reported ) Patient Instructions Patient Instructions POD#2 s/p LAVH/BSO, POD#1 s/p operative scope with evacuation of hematoma awaiting final sono this am to ensure ok then dc to home NPV x 6 weeks light/limited activity x 2 weeks keep scheduled appt with me in one week call or return sooner if has any questions or concerns not limited to but including pain unrelieved with pain pills, increased or unexplained vaginal bleeding or T>100.4 already has percocet at home and may alternate ibuprofen in between time RAFAELA POND MD Nov 22, 2016 11:12
--- NOTE | 2016-11-22 11:14 | RAD ---
Pelvic ultrasound, 11/22/2016: History: Follow-up pelvic fluid collections Comparison is made to yesterday's study. The uterus is surgically absent. Collections of fluid seen in the pelvis on yesterday's study are no longer evident. The patient reports an interval intervention. Heterogeneous pelvic echoes are compatible with bowel. No pelvic mass or suspicious fluid collection is currently seen. IMPRESSION: Resolution of the previously seen pelvic fluid collections.
--- NOTE | 2016-11-24 15:58 | PATHOLOGY ---
PATHOLOGY REPORT * * * * * * * * FINAL DIAGNOSIS: Uterus, bilateral fallopian tubes and ovaries, laparoscopic assisted vaginal hysterectomy with bilateral salpingo-oophorectomy: - Adenomyosis, uterine corpus, with mild myometrial hypertrophy (uterine weight 111 grams). - Chronic cervicitis with focal squamous metaplasia. - Nabothian cysts, cervix. - Proliferative endometrium. - Small left paratubal cyst. - Simple serous cyst and hemorrhagic luteinized cyst of left ovary. - Cystic follicles and small simple serous cysts of right ovary. COMMENT: There is no evidence of malignancy. (JPM:all; d/t: 11/24/2016) REPORT ELECTRONICALLY SIGNED BY: Bartolome Almaguer M.D. DATE/TIME: 11/24/2016 15:58 * * * * * * * * GROSS PATHOLOGY: The specimen is received in formalin labeled "Miriam Fernando, uterus, cervix, bilateral tubes and ovaries". Received is a 111 g, 8.6 x 5.3 x 4.7 cm uterus with attached cervix and attached adnexa, weighing 6 and 7 g, left and right, respectively. The uterine serosa is pink-felix, smooth and glistening in appearance. The 0.8 cm cervical os is surrounded by pale felix, smooth to wrinkled ectocervical mucosa. The uterus is oriented using the peritoneal reflection and the anterior paracervical margin is inked black. The specimen is opened laterally to reveal a light felix endocervical canal measuring 2.0 cm in length. The endometrial cavity is triangular measuring 4.8 cm in length by 2.0 cm in width. The endometrium is pale felix, glistening in appearance and measures 0.1 cm in thickness. Serial sectioning reveals a felix-pink, trabeculated myometrium measuring up to 2.3 cm in thickness with no grossly distinct nodules or lesions. The left adnexa consists of a fimbriated fallopian tube measuring 2.2 cm in length by 0.5 cm in diameter attached to a 2.5 x 2.3 x 1.4 cm ovary. The fallopian tube appears grossly unremarkable and sectioning through the ovary reveals two unilocular cystic structures measuring 0.5 cm filled with blood-tinged fluid. Corpora lutea are present ranging in size from 0.3-0.6 cm. The right adnexa consists of a fimbriated fallopian tube measuring 0.6 cm in length by 0.4 cm in diameter attached to a 2.6 x 2.4 x 1.3 cm ovary. The fallopian tube appears grossly unremarkable and sectioning through the ovary reveals a unilocular cystic structure measuring 1.0 cm filled with clear fluid. Remaining cut surfaces display pale felix, normal ovarian stroma. The specimen is submitted representatively as follows: A1 12:00 cervix A2 6:00 cervix A3 anterior endomyometrium A4 posterior endomyometrium A5 left adnexa A6 right adnexa. (CAA; 11/21/2016) INITIAL CPT CODE(S): A; 34409 Professional services performed [place] [facility] [place] [address] Technical services performed by [facility] at [address] [place] [address], [facility] [address], [place] [address]. SPECIMEN(S) RECEIVED: A.Uterus, cervix, bilateral tubes and ovaries CLINICAL HISTORY: Pelvic pain, cramps, abnormal bleeding PATIENT: MIRIAM FERNANDO /AGE: 10 1980 (Age: 36) PATIENT #: [id number] ALT CASE #: SPECIMEN COLLECTION DATE: 11/20/2016 SPECIMEN RECEIVED DATE: 11/20/2016 [facility] - [id number] [place] [address] - PHONE: [phone] * * * END OF REPORT * * *
== END 2016-11-22 11:39 | disposition home or self-care (01) ==
LOC: SURG 06:05 → 3 NORTH 09:05
PROVIDERS: ADMIT Obstetrics & Gynecology; ATTEND Obstetrics & Gynecology
DX: N94.6 Dysmenorrhea, unspecified (principal); R10.2 Pelvic and perineal pain; G89.29 Other chronic pain; N92.6 Irregular menstruation, unspecified; N73.6 Female pelvic peritoneal adhesions (postinfective); N83.202 Unspecified ovarian cyst, left side; N83.201 Unspecified ovarian cyst, right side
CPT/HCPCS: 36415; 58552; 76856; 76857; 80048; 81025; 85014; 85027; 86850; 86900; 86901; 88307; 96365; 96368; 96375; 96376; C1769; G0378; G0379; J0131; J0330; J0780; J1100; J1170; J1200; J1885; J1956; J2250; J2270; J2370; J2405; J2704; J2710; J3010; J3490; J7030; J7120

== ENCOUNTER → 2017-09-28 | Outpatient (CLI) | payer OTHER ==
[~2017-09-28] MED LIST changes: -CLINDAMYCIN 600MG PREMIX 50 ML IV ONE
--- NOTE | 2017-09-29 09:26 | KCIC ---
Bilateral digital screening mammograms: Reason for examination: Routine screening. Comparison is made to previous study dated 02/04/2016. Interpretation was made with the benefit of CAD. The skin and nipples show no abnormalities. No abnormal axillary lymph nodes are seen. The breast parenchyma shows scattered fibroglandular density. (Breast density: Category B.) There are no dominant masses, suspicious calcifications or architectural distortions. Impression: No evidence of malignancy. Recommend routine screening. BI-RADS Category 1: Negative. "Our facility is accredited by the [employer] Mammography Program." This patient's information has been entered into a reminder system for the patient to be notified with the results of her examination and a target date for the next mammogram. Electronically signed by: Connie Petersen MD (09/29/2017 9:23 AM) [id number]
== END | disposition home or self-care (01) ==
LOC: KCIC MAMMO 17:13
PROVIDERS: ATTEND Obstetrics & Gynecology
DX: Z12.31 Encounter for screening mammogram for malignant neoplasm of breast (principal)
CPT/HCPCS: G0202; 77067

== ENCOUNTER 2018-01-18 23:31 | Emergency (ER) | payer OTHER ==
[2018-01-19] MEDS ORDERED: HYDROcodone/APAP 5/325MG 1 TAB TABLET PO (00:15)
== END 2018-01-19 00:18 | disposition home or self-care (01) ==
LOC: ER 01-19 00:18
DX: M77.8 Other enthesopathies, not elsewhere classified (principal); M06.9 Rheumatoid arthritis, unspecified; Z88.0 Allergy status to penicillin
CPT/HCPCS: 99283

== ENCOUNTER → 2018-08-23 | Outpatient (CLI) | payer OTHER ==
[2018-01-18 23:40] VITALS: BP 158/83
[~2018-08-23] MED LIST changes: +PRED20TA PO; +REGADENOSON 0.4 MG/5 ML DISP.SYRIN. IV ONE
[2018-08-23 09:19] LABS: CHOLESTEROL/HDL RATIO 3.6
--- NOTE | 2018-08-24 10:20 | RAD ---
MR#: [id number] Date of Study: 08/24/2018 Ordering Physician: KIRA MOTTA Referring Physician: LIZ COLIN Tech: RT Jose Raul (R) (N) APPROVED REPORT Test Type: Pharmacological Stress Nurse/Tech: Ave Malagon R.N. Test Indications: chest pain Cardiac History: Family history, smoker Medications: See Electronic Medical Record Medical History: See Electronic Medical Record Resting ECG: NSR Resting Heart Rate: 62 bpm Resting Blood Pressure: 131/82mmHg Pretest Chest Pain: No chest pain Nurse/Tech Notes S1S2, lungs sound clear Consent: The procedure was explained to the patient in lay terms. Informed consent was witnessed. Kevin eout was entered into [employer]. History and Stress Test performed by Ave Malagon R.N. Pharm. Details Pharmacologic stress testing was performed using 0.4mg per 5ml of regadenoson given intravenously ove r 7-10 seconds. Stress Symptoms Dyspnea POST EXERCISE Reason for Termination: Infusion complete Target HR: 154 Max HR: 117 bpm Max Blood Pressure: 143/90mmHg Blood Pressure response to exercise: Normal blood pressure response during stress. Chest Pain: No. Arrhythmia: No. ST Change: No. INTERPRETATION Stress EKG Conclusion: No evidence of stress induced EKG changes. Imaging Protocol IMAGE PROTOCOL: Rest Tc-99m/stress Tc-99m 2 days Rest: Stress: Viability: Radiopharm.Tc99m RrsqjuopvAl09l Sestamibi Kqwq55hQh 33.4mCi Duration 13.5min. 13.5min. Img Date 08/23/2018 08/24/2018 Inj-Img Zfby94kdl. 50min. Rest Admin Site:IV - Right HandAdministrator:RT Jose Raul (Tram)(N) Stress Admin Site: IV - Right HandAdministrator: RT Jose Raul (R)(N) STRESS DATA End Diast. Vol.85.0mlLVEDV index BSA40.0ml End Syst. Vol.27.0mlLVESV index BSA13.0ml Myocardial Lsby250.0gEject. Lpkqequg99.0% Stress Scores Regional WT0.00Summed WT7.00 Regional WM0.00Summed WM2.00 LV Perfusion There is a moderate sized, mild to moderate in intensity reversible perfusion defect involving the an terior/anteroseptal and basal anterolateral quesada suggestive of impaired perfusion in the LAD territo ry. Due to the patient's weight, this may be related to breast attenuation. Wall Motion Normal wall motion. LV Perf. Quant 17 Seg. SSS9.00 17 Seg. SRS1.00 17 Seg. SDS8.00 Stress Defect Extent (% LAD)9.40Rest Defect Extent (% LAD)0.00Rev. Defect Extent (% LAD)5.60 Stress Defect Extent (% LCX) 20.00Rest Defect Extent (% LCX)5.00Rev. Defect Extent (% LCX)7.50 Stress Defect Extent (% RCA)0.00Rest Defect Extent (% RCA)0.00Rev. Defect Extent (% RCA)0.00 Stress Defect Extent (% KEYON)10.70Rest Defect Extent (% KEYON)1.10Rev. Defect Extent (% KEYON)5.20 Other Information Risk Assessment: Low-Moderate Risk Conclusion 1. No evidence of vasodilator induced EKG changes. 2. Mild anterior wall perfusion defect, likely related to breast attenuation but mild underlying juan luis nary ischemia cannot be ruled out. Consider prone imaging. 3. Normal LV function. EF 65% 4. Low to moderate risk study Signed by : Fawad Linder, Electronically Approved : 08/24/2018 10:19:06
--- NOTE | 2018-08-24 11:18 | CARD ---
MR#: [id number] Date of Study: 08/24/2018 Ordering Physician: KIRA MOTTA, Referring Physician: KIRA MOTTA Tech: Suzi Galeana RDCS APPROVED REPORT EXAM: Two-dimensional and M-mode echocardiogram with Doppler and color Doppler. Other Information Quality : Good INDICATION Chest Pain 2D DIMENSIONS RVDd3.2 (2.9-3.5cm)Left Atrium(2D)3.5 (1.6-4.0cm) IVSd1.0 (0.7-1.1cm)Aortic Root(2D)2.7 (2.0-3.7cm) LVDd4.2 (3.9-5.9cm)LVOT Diameter2.3 (1.8-2.4cm) PWd0.9 (0.7-1.1cm)LVDs3.2 (2.5-4.0cm) FS (%) 25.2 %SV40.1 ml LVEF(%)50.2 (>50%) Aortic Valve AoV Peak Sriram.169.5cm/sAoV VTI34.5cm AO Peak GR.11.5mmHgLVOT Peak Sriram.161.3cm/s LVOT VTI 33.60cmAO Mean GR.6mmHg TINO (VMAX)3.33yz2WES (VTI)3.90cm2 Mitral Valve MV E Itnroevp21.9cm/sMV DECEL TURX510xx MV A Iqfywqmt20.3cm/sMV JPS58iu E/A Ratio1.7MVA (PHT)3.31cm2 TDI E/Lateral E'5.9E/Medial E'11.0 Tricuspid Valve TR P. Lyhsyaxi773np/sRAP QWUYOPLU3suAq TR Peak Gr.18ncYnWFNL19lqMj Pulmonary Vein S1 Kgpzjtvd66.2cm/sD2 Dwfjrzqi99.0cm/s LEFT VENTRICLE The left ventricle is normal size. There is normal left ventricular wall thickness. The left ventricu lar systolic function is normal. The Ejection Fraction is 55%. There is normal LV segmental wall santosh on. The left ventricular diastolic function and filling is normal for age. RIGHT VENTRICLE The right ventricle is normal size. The right ventricular systolic function is normal. ATRIA The left atrium size is normal. The right atrium size is normal. The interatrial septum is intact wit h no evidence for an atrial septal defect or patent foramen ovale as noted on 2-D or Doppler imaging. AORTIC VALVE The aortic valve is normal in structure and function. Doppler and Color Flow revealed trace aortic re gurgitation. There is no significant aortic valvular stenosis. MITRAL VALVE The mitral valve is normal in structure and function. There is no evidence of mitral valve prolapse. There is no mitral valve stenosis. Doppler and Color-flow revealed mild mitral regurgitation. TRICUSPID VALVE The tricuspid valve is normal in structure and function. Doppler and Color Flow revealed trace tricus pid regurgitation. The PA pressure was estimated at 21 mmHg. There is no tricuspid valve stenosis. PULMONIC VALVE The pulmonic valve is not well visualized. Doppler and Color Flow revealed trace pulmonic valvular re gurgitation. There is no pulmonic valvular stenosis. GREAT VESSELS The aortic root is normal in size. The ascending aorta is mildly dilated at 3.5 cm. The IVC is normal in size and collapses >50% with inspiration. PERICARDIAL EFFUSION There is no evidence of significant pericardial effusion. Critical Notification Critical Value: No <Conclusion> The left ventricular systolic function is normal. The Ejection Fraction is 55%. There is normal LV segmental wall motion. Mild mitral regurgitation. Trace tricuspid regurgitation. The PA pressure was estimated at 21 mmHg. There is no evidence of significant pericardial effusion. Signed by : Kira Motta, Electronically Approved : 08/24/2018 11:16:45
--- NOTE | 2018-09-01 06:59 | EKG ---
[facility] [address] [place] [address] Test Date: 2018-09-01 Test Time: 04:48:03 Pat Name: ISI SALAMANCA Department: Room: Gender: [employer] Boards Router: : 1980 Requested By: KIRA MOTTA Order Number: [id number] Reading MD: Fawad Linder MD Interpretive Statements No significant arrhythmias. Electronically Signed On 09-06-2018 13:51:40 BOILER OR ENGINE OPERATOR by Fawad Linder MD
== END | disposition home or self-care (01) ==
LOC: NM 08:15
PROVIDERS: ATTEND Internal Medicine Cardiovascular Disease
DX: I34.0 Nonrheumatic mitral (valve) insufficiency (principal); I25.9 Chronic ischemic heart disease, unspecified
CPT/HCPCS: 36415; 78452; 80061; 93017; 93225; 93306; 96374; 96375; 96376; A9500; J2785

== ENCOUNTER → 2018-11-09 | Outpatient (CLI) | payer OTHER ==
[2018-01-18 23:40] VITALS: BP 158/83
[~2018-11-09] MED LIST changes: +HYDR-3164 PO; -HYDR-971 PO; -REGADENOSON 0.4 MG/5 ML DISP.SYRIN. IV ONE
--- NOTE | 2018-11-09 14:34 | KCIC ---
MRI Lumbar Spine without contrast History: Acute left L5 radiculopathy, new left leg pain the last 2 weeks Technique: Multiplanar, multi sequential noncontrast MR imaging was performed of the lumbar spine. Comparison: None Findings: Lumbar vertebral body stature and AP alignment are within normal limits. There is hemangioma L1 vertebral body, also of T11. There is more advanced degenerative disc disease at L4-5, mild to moderate degenerative disc disease at L3-4 and minimally L5-S1. There are posterior annular tears L4-5 and L5-S1. Conus terminates at superior aspect of L1. L3-L4: There is minimal disc osteophyte complex and bulge somewhat more eccentric to the right lateral recess, mild narrowing of the far right lateral recess. Neural foramina are overall adequate. L4-L5: There is extrusion extending below the intervertebral disc space in the far left lateral recess measuring about 10 mm CC by 5 mm AP by about 9 mm transverse. There is inferior extent to the mid one half of the L5 vertebral body. There is impingement of the descending left L5 nerve root in the left lateral recess, moderate to severe narrowing of the far left lateral recess. Central canal is overall adequate. Minimal disc osteophyte complex contributes to mild narrowing of the left neural foramen, right neural foramen overall adequate. L5-S1: There is negligible posterior protrusion without neural impingement or spinal stenosis. There is again extrusion posterior to the superior L5 vertebral body in the left lateral recess, contacting the left L5 nerve root at the proximal aspect of the left neural foramen, otherwise more distal left neural foramen adequate. Right neural foramen is adequate. Impression: 1. There is extrusion extending below the L4-5 intervertebral disc space in the left lateral recess extending to the level of the mid one half of the L5 vertebral body with impingement of the left L5 nerve root. There is mild narrowing of the far right lateral recess at L3-4. 2. There is more advanced degenerative disc disease L4-5, to lesser degree at L3-4, and minimally L5-S1. 3. There is mild narrowing of the left L4-5 neural foramen. Electronically signed by: David Pinzon MD (11/09/2018 2:30 PM) [facility]
== END | disposition home or self-care (01) ==
LOC: KCIC MRI 12:53
PROVIDERS: ATTEND Physical Medicine & Rehabilitation
DX: M51.16 Intervertebral disc disorders with radiculopathy, lumbar region (principal); M51.37 Other intervertebral disc degeneration, lumbosacral region; M25.78 Osteophyte, vertebrae; D18.09 Hemangioma of other sites
CPT/HCPCS: 72148

== ENCOUNTER → 2018-12-06 | Outpatient (CLI) | payer MEDICAID, OTHER ==
[2018-01-18 23:40] VITALS: BP 158/83
[~2018-12-06] MED LIST changes: +BUPR300T3 PO; +CLON0.2T PO; +CYCL10TA2 PO; +ESTR2TAB PO; +GABA600T7 PO; +PANT20TA2 PO
[2018-12-06 16:35] LABS: BASO % 1 % (0-3); EOS # 0.2 x10^3/uL (0.0-0.7); EOS % 2 % (0-3); HEMOGLOBIN 14.5 g/dL (12.0-15.5); LYMPH # 2.7 x10^3/uL (1.0-4.8); LYMPH % 28 % (24-48); MEAN CORPUSCULAR HEMOGLOBIN 32 pg (25-35); MEAN CORPUSCULAR HGB CONC 33 g/dL (31-37); MEAN CORPUSCULAR VOLUME 96 fL (79-100); MONO # 0.5 x10^3/uL (0.0-1.1); MONO % 5 % (0-9); NEUT # 6.2 x10^3uL (1.8-7.7); NEUT % 64 % (31-73); PLATELET COUNT 200 x10^3/uL (140-400); RED BLOOD COUNT 4.56 x10^6/uL (3.50-5.40); RED CELL DISTRIBUTION WIDTH 13.5 % (11.5-14.5); WHITE BLOOD COUNT 9.6 x10^3/uL (4.0-11.0)
[2018-12-06 16:49] LABS: ALBUMIN 3.3 g/dL (3.4-5.0); ALBUMIN/GLOBULIN RATIO 0.8 (1.0-1.7); CREATININE 0.8 mg/dL (0.6-1.0); GFR 80.3; POTASSIUM 3.6 mmol/L (3.5-5.1); TOTAL BILIRUBIN 0.3 mg/dL (0.2-1.0); TOTAL PROTEIN 7.5 g/dL (6.4-8.2)
== END | disposition home or self-care (01) ==
LOC: SURGPAT 13:25
PROVIDERS: ATTEND Neurological Surgery
DX: Z01.818 Encounter for other preprocedural examination (principal); M51.16 Intervertebral disc disorders with radiculopathy, lumbar region; Z88.0 Allergy status to penicillin
CPT/HCPCS: 36415; 80053; 85025; 87641

== ENCOUNTER 2019-01-05 10:29 | Day surgery (SDC) | payer MEDICAID, OTHER ==
--- NOTE | 2019-01-04 12:16 | PREOP HP ---
DATE OF SERVICE: 01/05/2019 HISTORY OF PRESENT ILLNESS: The patient is a pleasant 38-year-old who is having difficulty with back pain and pain, which radiates into her left buttock and hip and then radiates down the left lateral thigh and leg into the dorsum of her left foot. She says her toes become numb including the great toe. She feels as though there is a stabbing pain in her left hip. The problem started spontaneously. She rates her pain as a 5-6/10. Walking, standing and sitting increase her pain. Lying on the right side seems to help her. She has been taking gabapentin and Kincaid. She has been on bed rest predominantly because the pain is so severe that she is unable to walk any distance or stand for any length of time. She says she spends most of her time lying down. She works as a caregiver. She has been completely unable to work since the problem began. PAST MEDICAL HISTORY: Anemia, arthritis, cold sores and fever blisters, headaches, migraines, neck and head injury, osteoporosis, rheumatoid arthritis, HPV. PAST SURGICAL HISTORY: Hysterectomy 2016. FAMILY HISTORY: Bleeding problems, cancer, diabetes, epilepsy, heart problems and disease, hypertension. SOCIAL HISTORY: Employed as a caregiver. . Denies substance abuse. Smokes 1 pack per day for 25 years. Drinks 1-2 times per year. Drinks coffee and tea. ALLERGIES: TO PENICILLIN. CURRENT MEDICATIONS: Wellbutrin, gabapentin, pantoprazole, estradiol, Flexeril, meloxicam, Kincaid, milk of magnesia. REVIEW OF SYSTEMS: A 12-point review of systems was obtained and is noncontributory except that mentioned above. PHYSICAL EXAMINATION: NEUROSURGERY EXAMINATION: GENERAL APPEARANCE: Alert, pleasant, no acute distress. HEAD: Normocephalic and atraumatic. SKIN: Warm and dry. MUSCULOSKELETAL: Lumbar paraspinal muscle bulk is normal, restricted range of motion of the lumbar spine, ijub-hn-jmajhjnb tenderness of the lower lumbar spine with palpation, normal range of motion of the lower extremities bilaterally. EXTREMITIES: No clubbing, cyanosis or edema. NEUROLOGIC: Alert and oriented x 3; normal recent and remote memory; strength 5/5 in bilateral lower extremities except for 4/5 left foot dorsiflexion and the left EHL. Sensory was intact to light touch in bilateral lower extremities except for decreased sensation in the dorsum of the left foot; reflexes were present and symmetric in lower extremities bilaterally; positive straight leg raising on the left at 30 degrees of back and left buttock and posterior thigh pain relieved by Lasegue's maneuver; negative straight leg raising on the right and slow shuffling antalgic gait favoring the left leg. IMAGING: I reviewed lumbar MRI scan. On that study, the principal abnormalities were at L4-L5 with a large extrusion, which extends inferiorly from the L4-L5 disc space and fills the left lateral recess to the level of the mid one-half of the L5 vertebral body. There is a marked compression of the left L5 nerve root. ASSESSMENT/ PLAN: There is a large extruded disc and she is severely impaired with weakness. I do not see a reasonable chance of improvement without lumbar microsurgery at L4-L5. I did speak with her about the surgery and the risks. I spoke about the technique of the operation. She understands. She would like to go ahead. We will make the arrangements. ZHANE NIETO MD DR: TOD/anjali JOB#: [id number] / [id number] IBRAHIMA
[~2019-01-05] VITALS: Ht 165.1 cm; Wt 105.2 kg
[~2019-01-05 10:29] MED LIST changes: +BACITRACIN 50,000 UNIT in IV NORMAL SALINE 1000ML BAG 1,000 ML IRR ONE; +BACITRACIN IRR ONE; +BUPIVAC MPF-EPI 0.5%-1:200000 30 ML VIAL. ONE; +DEXAMETHASONE SOD PHOS 20 MG/5 ML VIAL. ONE; +GELATIN SPONGE SIZE 100. ONE; +HYDROmorphone 2 MG/ML VIAL IV PRN; +IV RINGERS,LACTATED 1000ML 1,000 ML IV SCH; +KETOROLAC 60 MG/2 ML INJ FOR OR. ONE; +LIDOCAINE 1% PF 2 ML VIAL. ID PRN; +LIDOCAINE 2% PF 5 ML VIAL. ONE; +MIDAZOLAM HCL/PF 2 MG/2 ML VIAL. ONE; +NORMAL SALINE IRR ONE; +ONDANSETRON PF 4 MG/2 ML VIAL. IV PRN; +ONDANSETRON PF 4 MG/2 ML VIAL. ONE; +PHENYLEPHRINE 10 MG/ML VIAL. ONE; +PROPOFOL 20 ML IV ONE; +PROPOFOL 50 ML IV ONE; +REMIFENTANIL 2 MG VIAL. IV ONE; +ROCURONIUM 50 MG/5 ML VIAL. ONE; +THROMBIN TOPICAL 20,000 UNIT SPRAY.SYRN KIT TP ONE; +VANCOMYCIN 1GM IVPB FOR OMNI 250 ML IV PRN; +fentaNYL PF VIAL 100 MCG/2 ML VIAL IV PRN
[2019-01-05] MEDS ORDERED: SCOPOLAMINE 1.5MG PATCH. TD ONE (11:15)
[2019-01-05] MEDS ORDERED: BUPIVAC MPF-EPI 0.5%-1:200000 30 ML VIAL. ONE (12:10)
[2019-01-05] MEDS ORDERED: KETOROLAC 60 MG/2 ML INJ FOR OR. ONE (12:10)
[2019-01-05] MEDS ORDERED: fentaNYL PF VIAL 100 MCG/2 ML VIAL ONE (12:15)
[2019-01-05] MEDS ORDERED: PROPOFOL 20 ML IV ONE (13:39)
--- NOTE | 2019-01-05 14:10 | DISCH ---
DISCHARGE INSTRUCTIONS Condition on Discharge Condition on Discharge: Stable Activity After Discharge Activity Instructions for Disc: Activity as tolerated, Avoid exertion Other activity instructions: no driving for a week Bathing Instructions: Shower-keep dressing dry Lifting Instructions after Dis: No heavy lifting, No pulling or pushing, Do not lift >10 pounds Driving Instructions after Dis: Do not drive Diet after Discharge Diet after Discharge: Regular Additional Diet Restrictions: resume home diet Wound Incision Care Wound/Incision Care: Ice to area for comfort, Keep wound/cast CDI Other wound/incision instructi: may remove dressing in 48 hours if dry then may shower, no soaking Contacting the after DC Call your doctor for: Concerns you may have Follow-Up Follow up with: Dr. Nieto's nurse in 2 weeks [phone] ZHANE NIETO MD Jan 05, 2019 14:10
[2019-01-05] MEDS ORDERED: HYDR-3164 PO (14:12)
[2019-01-05] MEDS ORDERED: DOCU-109 PO (14:12)
[2019-01-05] MEDS: PROCHLORPERAZINE 10 MG/2 ML VIAL. IV PRN ×2 (14:16→14:48)
[2019-01-05] MEDS: fentaNYL PF VIAL 100 MCG/2 ML VIAL IV PRN ×2 (14:17→14:35)
[2019-01-05] MEDS: MORPHINE SULFATE 4 MG/ML VIAL. IV PRN ×2 (14:23→14:48)
[2019-01-05] MEDS ORDERED: HYDROcodone/APAP 5/325MG 1 TAB TABLET PO ONE ×2 (14:45)
[2019-01-05 15:36] VITALS: BP 137/99
--- NOTE | 2019-01-05 15:52 | OP ---
DATE OF SURGERY: 01/05/2019 PREOPERATIVE DIAGNOSIS: Herniated lumbar disc, left L4-L5, with inferior fragment and radiculopathy. POSTOPERATIVE DIAGNOSIS: Herniated lumbar disc, left L4-L5, with inferior fragment and radiculopathy. OPERATION PERFORMED: Hemilaminotomy and microdiscectomy, L4-L5, left with removal of inferior sequestered disc fragment. The operation was done with EMG monitoring, SSEP monitoring, fluoroscopy, microscopic dissection. SURGEON: Zhang Nieto M.D. BEFORE AND AFTER SCHOOL DAYCARE WORKER: SOCORRO Bhatt, assisted with the surgery. She assisted with the microdecompression as well as the closure. OPERATIVE INDICATIONS: The patient is a pleasant 38-year-old who developed intractable back and left leg pain, which failed conservative measures. On imaging studies, she had above-mentioned findings and I recommended lumbar microsurgery. I spoke with her about the surgery, the risks, technique and expected postoperative course and she wished to go ahead. DESCRIPTION OF PROCEDURE: Following general endotracheal anesthesia, the patient was positioned prone on the Christian table. Lumbar region prepped and draped in standard fashion. ARLEEN hose and AV impulse boots were applied for DVT prophylaxis. A microscope was draped. Fluoroscopy was draped and brought into field. Monitoring was established. Vancomycin 1 gram was given prior to surgery. Using fluoroscopic guidance, incision was made over the L4-L5 interspace and dissected down skin and subcutaneous tissue, reflected the paraspinal muscles and placed a Puposky microdisc retractor. We did use our longest Puposky microdisc retractor to enable adequate exposure and I used deep Gelpi's to help retract adipose tissue and the subcutaneous tissue. I brought in the high speed air drill, confirmed my position fluoroscopically, burred down a generous hemilaminotomy, trimmed away thickened ligamentum flavum exposing the dura and then I performed a partial foraminotomy and carried this inferiorly, to be sure that I had adequate exposure to remove the inferior fragment. I then gently retracted the dura and root medially. There was a hard disc at the level of the disc space, I incised this with an arachnoid knife. A #11 blade would not reach and then I began to tease back fragments with a long micropituitary. I used the 2 mm micro Kerrison to further remove some of the calcified disc and bone and was able to decompress the dura at this level. I then used the blunt hook and followed the nerve root inferiorly. I then was able to free up and then tease from inferiorly to superiorly of sequestered disc fragment both with a blunt hook as well as the micropituitary. This was in the subligamentous space and the large fragment came superiorly and the root was very free as well as the dura. I continued to remove disc material. There were areas which were densely calcified which were unremovable safely but as I worked, I felt that I had an excellent decompression of the root which was markedly compressed at the initiation of the surgery, was very free as was the common dural sac at the end. I explored carefully, there were no retained fragments. I irrigated copiously. Hemostasis was excellent throughout. I removed the retractor, obtaining hemostasis in the muscle, irrigated and then closed the fascia, closed the subcutaneous tissue after irrigation and then the skin was closed with 4-0 subcuticular stitch. The operation went very well and I was quite pleased with the surgery. ZHANG NIETO MD DR: TOD/anjali JOB#: [id number] / [id number] IBRAHIMA
--- NOTE | 2019-01-10 11:08 | PATHOLOGY ---
[facility] Accession Number: [id number] . 01 Material submitted: . LUMBAR DECOMPRESSION AND DISC . 01 Clinical history: . Lumbar herniated disc and radiculopathy, foot drop . 02 Diagnosis: Segments of fibrocartilaginous, adipose, and skeletal muscle tissue, lumbar decompression and disc: - Degenerative changes of fibrocartilaginous tissue. . (JPM:mm; 01/10/2019) [facility]/01/10/2019 . 02 Comment: There is no evidence of an acute inflammatory process or malignancy. . (JPM:mml; 01/10/2019) . 02 Electronically signed: . Bartolome Almaguer MD, Pathologist NPI- [id number] . 01 Gross description: . Received in formalin labeled "Miriam Fernando, lumbar decompression and disc.," are several pieces of glistening, fibrous tissue admixed with large segments of bright yellow adipose tissue, measuring 4.6 x 3.1 x 1.2 cm in aggregate dimensions, containing small fragments of possible bone. The tissue submitted representatively in cassette A1, following decalcification. (TSD; 01/06/2019) TOB/TOB . 02 Pathologist provided ICD-10: M51.36 . 02 CPT . 804127, 425222 Specimen Comment: A courtesy copy of this report has been sent to Specimen Comment: [phone], . Specimen Comment: Report sent to and Specimen Comment: A duplicate report has been generated due to demographic updates. Performed at: [address], [place], [place] [id number] MD Regulo Wade MD Phone: [phone] Performed at: 02 [facility] [address] [place] [id number] MD Bartolome Almaguer MD Phone: [phone]
== END 2019-01-05 16:00 | disposition home or self-care (01) ==
LOC: SURG 10:29
PROVIDERS: ATTEND Neurological Surgery
DX: M51.16 Intervertebral disc disorders with radiculopathy, lumbar region (principal); Z88.0 Allergy status to penicillin; G43.909 Migraine, unspecified, not intractable, without status migrainosus; M06.9 Rheumatoid arthritis, unspecified; D64.9 Anemia, unspecified; M81.0 Age-related osteoporosis without current pathological fracture; Z90.710 Acquired absence of both cervix and uterus; Z83.3 Family history of diabetes mellitus; Z82.49 Family history of ischemic heart disease and other diseases of the circulatory system; Z82.0 Family history of epilepsy and other diseases of the nervous system; Z72.89 Other problems related to lifestyle; F17.210 Nicotine dependence, cigarettes, uncomplicated; Z79.899 Other long term (current) drug therapy; M21.372 Foot drop, left foot
CPT/HCPCS: 63030; 97161; A7015; J0780; J1100; J1885; J2001; J2250; J2270; J2405; J2704; J3010; J3370; J3490; J7030; J7120; 76000; 88304; 88311

== ENCOUNTER → 2019-01-31 | Outpatient (CLI) | payer OTHER ==
[2019-01-05 15:36] VITALS: BP 137/99
[~2019-01-31] MED LIST changes: -BACITRACIN 50,000 UNIT in IV NORMAL SALINE 1000ML BAG 1,000 ML IRR ONE; -BACITRACIN IRR ONE; -BUPIVAC MPF-EPI 0.5%-1:200000 30 ML VIAL. ONE; -DEXAMETHASONE SOD PHOS 20 MG/5 ML VIAL. ONE; +DOCU-109 PO; -GELATIN SPONGE SIZE 100. ONE; -HYDROmorphone 2 MG/ML VIAL IV PRN; -IV RINGERS,LACTATED 1000ML 1,000 ML IV SCH; -KETOROLAC 60 MG/2 ML INJ FOR OR. ONE; -LIDOCAINE 1% PF 2 ML VIAL. ID PRN; -LIDOCAINE 2% PF 5 ML VIAL. ONE; -MIDAZOLAM HCL/PF 2 MG/2 ML VIAL. ONE; +NAPR-683 PO; -NORMAL SALINE IRR ONE; -ONDANSETRON PF 4 MG/2 ML VIAL. IV PRN; -ONDANSETRON PF 4 MG/2 ML VIAL. ONE; -PHENYLEPHRINE 10 MG/ML VIAL. ONE; -PROPOFOL 20 ML IV ONE; -PROPOFOL 50 ML IV ONE; -REMIFENTANIL 2 MG VIAL. IV ONE; -ROCURONIUM 50 MG/5 ML VIAL. ONE; -THROMBIN TOPICAL 20,000 UNIT SPRAY.SYRN KIT TP ONE; -VANCOMYCIN 1GM IVPB FOR OMNI 250 ML IV PRN; -fentaNYL PF VIAL 100 MCG/2 ML VIAL IV PRN
--- NOTE | 2019-01-31 12:35 | KCIC ---
Examination: 2 views of the chest, 3 views of the bilateral wrists, frontal view the pelvis, frontal view of the bilateral knees, 2 views of the bilateral hands, feet, lateral view of the cervical spine HISTORY: History of joint pain, arthritis COMPARISON: None available FINDINGS: The cardiomediastinal silhouette grossly appears unremarkable. There is no acute infiltrate or visualized pneumothorax. The bilateral femoral heads within the acetabula. The knee joints are well aligned. The cervical vertebral bodies are well aligned. The facets appear to be well aligned. The tarsal bones, tarsometatarsal joints, metatarsophalangeal joints, interphalangeal joints grossly appears unremarkable. The alignment of the metacarpophalangeal joints, interphalangeal joints grossly appears unremarkable. The alignment of the carpal bones grossly appears unremarkable. No obvious erosive changes. IMPRESSION: No obvious erosive changes identified in the visualized joints to suggest radiographic evidence of inflammatory joint disease. Electronically signed by: Alexei Salamanca MD (01/31/2019 12:32 PM) [id number]
== END | disposition home or self-care (01) ==
LOC: KCIC 10:40
PROVIDERS: ATTEND Internal Medicine
DX: M06.9 Rheumatoid arthritis, unspecified (principal)
CPT/HCPCS: 72020; 72170; 73100; 73120; 73565; 73620

== ENCOUNTER → 2019-01-31 | Outpatient (CLI) | payer OTHER ==
[2019-01-05 15:36] VITALS: BP 137/99
--- NOTE | 2019-01-31 11:55 | KCIC ---
Bilateral digital screening mammograms: Reason for examination: Routine screening. Comparison is made to previous studies dated 09/28/2017 and 02/04/2016. Interpretation was made with the benefit of CAD. The skin and nipples show no abnormalities. No abnormal axillary lymph nodes are seen. The breast parenchyma shows scattered fibroglandular density. (Breast density: Category B.) There continues to be some asymmetric parenchyma medially in the right breast seen on cc view which is stable when compared to previous exams. There are no new dominant masses, suspicious calcifications or architectural distortions. Impression: No evidence of malignancy. Recommend routine screening. BI-RADS Category 2: Benign. "Our facility is accredited by the [employer] Mammography Program." This patient's information has been entered into a reminder system for the patient to be notified with the results of her examination and a target date for the next mammogram. Electronically signed by: Connie Peteresn MD (01/31/2019 11:52 AM) [facility]
== END | disposition home or self-care (01) ==
LOC: KCIC MAMMO 10:25
PROVIDERS: ATTEND Obstetrics & Gynecology
DX: R92.8 Other abnormal and inconclusive findings on diagnostic imaging of breast (principal)
CPT/HCPCS: 77067

== ENCOUNTER → 2019-01-31 | Outpatient (CLI) | payer OTHER ==
[2019-01-05 15:36] VITALS: BP 137/99
--- NOTE | 2019-01-31 12:35 | KCIC ---
Examination: 2 views of the chest, 3 views of the bilateral wrists, frontal view the pelvis, frontal view of the bilateral knees, 2 views of the bilateral hands, feet, lateral view of the cervical spine HISTORY: History of joint pain, arthritis COMPARISON: None available FINDINGS: The cardiomediastinal silhouette grossly appears unremarkable. There is no acute infiltrate or visualized pneumothorax. The bilateral femoral heads within the acetabula. The knee joints are well aligned. The cervical vertebral bodies are well aligned. The facets appear to be well aligned. The tarsal bones, tarsometatarsal joints, metatarsophalangeal joints, interphalangeal joints grossly appears unremarkable. The alignment of the metacarpophalangeal joints, interphalangeal joints grossly appears unremarkable. The alignment of the carpal bones grossly appears unremarkable. No obvious erosive changes. IMPRESSION: No obvious erosive changes identified in the visualized joints to suggest radiographic evidence of inflammatory joint disease. Electronically signed by: Alexei Salamanca MD (01/31/2019 12:32 PM) [id number]
== END | disposition home or self-care (01) ==
LOC: KCIC 10:32
DX: M06.9 Rheumatoid arthritis, unspecified (principal)
CPT/HCPCS: 71046

== ENCOUNTER 2019-02-23 07:26 | Emergency (ER) | payer OTHER ==
[~2019-02-23] VITALS: Ht 165.1 cm; Wt 111.1 kg
[~2019-02-23 07:26] MED LIST changes: -NAPR-683 PO
[2019-02-23 07:29] VITALS: BP 159/80
[2019-02-23] MEDS ORDERED: IBUPROFEN 400 MG TABLET. PO ONE (07:45)
--- NOTE | 2019-02-23 07:53 | PHYS DOC ---
Past Medical History Past Medical History: No Pertinent History, Other Additional Past Medical Histor: RA Past Surgical History: Hysterectomy Additional Past Surgical Histo: herniated disk Alcohol Use: Rarely Drug Use: None Adult General Chief Complaint Chief Complaint: ANKLE PROBLEM HPI HPI Patient is a 38 year old female who presents with complaining of right ankle pain. Patient states she twisted her right ankle when tried to get to her van this morning around 6 AM with edema lateral malleolus and pain for bearing weight. Patient denies other injuries and focal neurodeficit. Patient rated her pain as 8/10. Review of Systems Review of Systems Constitutional: Denies fever or chills [] Eyes: Denies change in visual acuity, redness, or eye pain [] HENT: Denies nasal congestion or sore throat [] Respiratory: Denies cough or shortness of breath [] Cardiovascular: No additional information not addressed in HPI [] GI: Denies abdominal pain, nausea, vomiting, bloody stools or diarrhea [] : Denies dysuria or hematuria [] Musculoskeletal: Denies back pain, reports joint pain [] Integument: Denies rash or skin lesions [] Neurologic: Denies headache, focal weakness or sensory changes [] Endocrine: Denies polyuria or polydipsia [] All other systems were reviewed and found to be within normal limits, except as documented in this note. Current Medications Current Medications Current Medications Medications (Trade) Dose Ordered Sig/Patricia Start Time Stop Time Status Last Admin Dose Admin Ibuprofen (Motrin) 800 mg 1X ONCE 02/23/19 07:45 02/23/19 07:52 DC 02/23/19 08:02 800 MG Allergies Allergies Allergies Coded Allergies Type Severity Reaction Last Updated Verified Penicillins Allergy Intermediate 01/05/19 Yes Physical Exam Physical Exam Constitutional: Well developed, well nourished, mild distress, non-toxic appearance. [] HENT: Normocephalic, atraumatic, oropharynx moist. Eyes: PERRLA, EOMI, conjunctiva normal, no discharge. [] Neck: Normal range of motion, no tenderness, supple, no stridor. [] Cardiovascular:Heart rate regular rhythm, no murmur [] Lungs & Thorax: Bilateral breath sounds clear to auscultation [] Skin: Warm, dry, no erythema, no rash. [] Extremities: Right lower extremity with no deformity, lateral malleolus edema and marked tenderness without neurovascular deficit, painful range of motion , no cyanosis, no clubbing. Neurologic: Alert and oriented X 3, normal motor function, normal sensory function, no focal deficits noted. [] Psychologic: Affect normal. Current Patient Data Vital Signs Vital Signs Date Time Temp Pulse Resp B/P (MAP) Pulse Ox O2 Delivery O2 Flow Rate FiO2 02/23/19 07:29 97.7 83 14 159/80 (106) 99 Room Air 97.7 EKG EKG [] Radiology/Procedures Radiology/Procedures [facility] [address] [place] [address] IMAGING REPORT Signed PATIENT: ISI SALAMANCA ACCOUNT: [id number] : 1980 LOCATION: ER AGE: 38 SEX: F EXAM STATUS: REG ER ORD. PHYSICIAN: TIARRA BULLARD MD REASON: twisted ankle getting out of van this am PROCEDURE: ANKLE RIGHT 3V RIGHT ANKLE AP, LATERAL, OBLIQUE Clinical Indication: twisted ankle getting out of van this am. Comparison: None. Findings: There is no acute fracture or dislocation. Mineralization is normal. Joint spaces are maintained. The ankle mortise is intact. There is no ankle joint effusion. There is no radiographically apparent soft tissue swelling. IMPRESSION: No acute fracture. Electronically signed by: Armand Davis MD (02/23/2019 8:23 AM) [id number] DICTATED and SIGNED BY: ARMAND DAVIS MD DATE: 02/23/19 0823 Course & Med Decision Making Course & Med Decision Making Pertinent Imaging studies reviewed. (See chart for details) Evolution of patient in ER showed 38-year-old female patient with twisting her right ankle with edema vascular malleolus without fracture x-ray. Plan to apply gelcast splint. She will presented with treatment with ibuprofen in ER. Plan discharge patient home to diagnose of ankle sprain. Dragon Disclaimer Dragon Disclaimer This electronic medical record was generated, in whole or in part, using a voice recognition dictation system. Departure Departure Impression: Primary Impression: Right ankle sprain Additional Impressions: Tobacco abuse Tobacco abuse counseling Disposition: 01 HOME, SELF-CARE Condition: IMPROVED Referrals: NO PCP (PCP) Patient Instructions: Ankle Sprain, Smoking Cessation, Tips For Success Additional Instructions: Apply ice on right ankle Follow-up with your primary care physician in 3-5 days Return to ER if not getting better Scripts Hydrocodone/Apap 5-325 (NORCO 5-325 TABLET) 1 Each Tablet 1 TAB PO PRN Q6HRS PRN for PAIN, #12 TAB 0 Refills Prov: TIARRA BULLARD MD 02/23/19 Naproxen (NAPROSYN) 500 Mg Tablet 1 TAB PO BID for pain, #20 TAB Prov: TIARRA BULLARD MD 02/23/19 Problem Qualifiers Primary Impression: Right ankle sprain Encounter type: initial encounter Involved ligament of ankle: unspecified ligament Qualified Codes: S93.401A - Sprain of unspecified ligament of right ankle, initial encounter TIARRA BULLARD MD Feb 23, 2019 07:53
--- NOTE | 2019-02-23 08:25 | RAD ---
RIGHT ANKLE AP, LATERAL, OBLIQUE Clinical Indication: twisted ankle getting out of van this am. Comparison: None. Findings: There is no acute fracture or dislocation. Mineralization is normal. Joint spaces are maintained. The ankle mortise is intact. There is no ankle joint effusion. There is no radiographically apparent soft tissue swelling. IMPRESSION: No acute fracture. Electronically signed by: Armand Cartagena MD (02/23/2019 8:23 AM) [id number]
[2019-02-23] MEDS ORDERED: NAPR-683 PO ×2 (08:44→09:00)
[2019-02-23] MEDS ORDERED: HYDR-3164 PO ×2 (08:44→09:00)
== END 2019-02-23 09:02 | disposition home or self-care (01) ==
LOC: ER 07:26
DX: S93.491A Sprain of other ligament of right ankle, initial encounter (principal); M06.9 Rheumatoid arthritis, unspecified; Z71.6 Tobacco abuse counseling; Z90.710 Acquired absence of both cervix and uterus; Z88.0 Allergy status to penicillin; X50.1XXA Overexertion from prolonged static or awkward postures, initial encounter; Y93.89 Activity, other specified; Y92.89 Other specified places as the place of occurrence of the external cause; Y99.8 Other external cause status
CPT/HCPCS: 73610; 99284

== ENCOUNTER 2020-03-06 11:32 | Emergency (ER) | payer MEDICAID, OTHER ==
[~2020-03-06] VITALS: Ht 165.1 cm; Wt 109.0 kg
[~2020-03-06 11:32] MED LIST changes: +NAPR-683 PO
[2020-03-06 12:07] VITALS: BP 164/80
[2020-03-06] MEDS ORDERED: HYDR-3164 PO (12:42)
[2020-03-06] MEDS ORDERED: METH4TAB2 PO (12:42)
--- NOTE | 2020-03-06 12:42 | PHYS DOC ---
Past Medical History Past Medical History: Depression, Other Additional Past Medical Histor: RA Past Surgical History: Hysterectomy Additional Past Surgical Histo: back surgery Smoking Status: Current Every Day Smoker Alcohol Use: Rarely Drug Use: None General Adult EDM: Chief Complaint: WRIST PAIN HPI: HPI: Patient is a 39 year old female who presents with states 3 days ago was doing yard work and then awoke with left wrist posterior tightness and 2+ swelling on radial side. She states it hurt to straighten 3rd and 4th finger due to a pulling feeling. She rates her discomfort at a 6/10. She is been taking naproxen. 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 She states in the past I gave her a Medrol Dosepak and Tylenol #3. Denies injury. Review of Systems: Review of Systems: Musculoskeletal: Denies back pain. Wrist joint pain. [] Heart Score: Risk Factors: Risk Factors: DM, Current or recent (<one month) smoker, HTN, HLP, family history of CAD, obesity. Risk Scores: Score 0 - 3: 2.5% MACE over next 6 weeks - Discharge Home Score 4 - 6: 20.3% MACE over next 6 weeks - Admit for Clinical Observation Score 7 - 10: 72.7% MACE over next 6 weeks - Early Invasive Strategies Allergies: Allergies: Allergies Coded Allergies Type Severity Reaction Last Updated Verified Penicillins Allergy Intermediate 01/05/19 Yes Physical Exam: PE: Constitutional: Well developed, well nourished, no acute distress, non-toxic appearance. [] HENT: Normocephalic, atraumatic, bilateral external ears normal, oropharynx moist, no oral exudates, nose normal. [] Eyes: PERRLA, EOMI, conjunctiva normal, no discharge. [] Neck: Normal range of motion, no tenderness, supple, no stridor. [] Cardiovascular:Heart rate regular rhythm, no murmur [] Lungs & Thorax: Bilateral breath sounds clear to auscultation [] Abdomen: Bowel sounds normal, soft, no tenderness, no masses, no pulsatile masses. [] Skin: Warm, dry, no erythema, no rash. [] Back: No tenderness, no CVA tenderness. [] Extremities: Posterior left wrist on radial side tightness and swelling in the muscle tenderness, no cyanosis, no clubbing, left wrist ROM not intact, no edema. [] Neurologic: Alert and oriented X 3, normal motor function, normal sensory function, no focal deficits noted. [] Psychologic: Affect normal, judgement normal, mood normal. [] Current Patient Data: Vital Signs: Vital Signs Date Time Temp Pulse Resp B/P (MAP) Pulse Ox O2 Delivery O2 Flow Rate FiO2 03/06/20 12:07 97.1 71 16 164/80 (108) 98 Room Air 97.1 EKG: EKG: [] Radiology/Procedures: Radiology/Procedures: [] Course & Med Decision Making: Course & Med Decision Making Pertinent Labs and Imaging studies reviewed. (See chart for details) No swelling of hand or fingers. Skin pink warm and dry. Cap refill less than 3 seconds. Limited range of motion of the wrist due to stiffness. Alert and oriented. Speaks in full clear sentences. Denies any numbness or coolness of the extremity. Radial pulses strong and present. No signs Tenosynovitis. Patient is placed on a Medrol Dosepak and given [place]. [] Dragon Disclaimer: Dragon Disclaimer: This electronic medical record was generated, in whole or in part, using a voice recognition dictation system. Departure Departure Impression: Primary Impression: Wrist pain, acute Qualified Codes: M25.532 - Pain in left wrist Disposition: 01 HOME, SELF-CARE Condition: STABLE Referrals: NO PCP (PCP) Patient Instructions: Wrist Pain, [id number] Additional Instructions: Call your rheumatoid doctor or your primary care doctor for follow-up. Take medications with food and as prescribed. Scripts Hydrocodone/Apap 5-325 (NORCO 5-325 TABLET) 1 Each Tablet 1 TAB PO PRN Q6HRS PRN for PAIN, #10 TAB 0 Refills Prov: ROBI ARANA [employer] PROVIDER 03/06/20 Methylprednisolone (MEDROL) 4 Mg Tab.ds.pk 1 PKG PO UD, #1 PKG Prov: ROBI ARANA [employer]SP[employer] PROVIDER 03/06/20 BAFROBI THOMAS [employer]SP[employer] PROVIDER March 06, 2020 12:42
== END 2020-03-06 13:16 | disposition home or self-care (01) ==
LOC: ER 11:32
DX: M25.532 Pain in left wrist (principal); R60.0 Localized edema; F32.9 Major depressive disorder, single episode, unspecified; F17.200 Nicotine dependence, unspecified, uncomplicated; Z90.710 Acquired absence of both cervix and uterus; Z98.890 Other specified postprocedural states; Z88.0 Allergy status to penicillin
CPT/HCPCS: 99283

== ENCOUNTER 2021-10-15 15:14 | Emergency (ER) | payer MEDICAID ==
[~2021-10-15] VITALS: Ht 165.1 cm; Wt 114.0 kg
[~2021-10-15 15:14] MED LIST changes: +CYCL10TA19 PO; -CYCL10TA2 PO; -ESTR2TAB PO; +ESTR2TAB3 PO; +METH4TAB2 PO
[2021-10-15 17:30] VITALS: BP 149/91
--- NOTE | 2021-10-15 17:56 | PHYS DOC ---
Past Medical History Past Medical History: Depression, Other Additional Past Medical Histor: RA Past Surgical History: Hysterectomy Additional Past Surgical Histo: back surgery Smoking Status: Current Every Day Smoker Alcohol Use: Rarely Drug Use: None General Adult EDM: Chief Complaint: THUMB HPI: HPI: Patient is a 41 year old female presented to the ED today complaining of mild pain to the right thumb on right elbow, symptoms began today after she lifted plywood. Patient states her right thumb hyperextended. Patient is right- handed. Patient describes the pain as sharp and intermittent worse on range of motion. Denies anything specifically relieving her pain Review of Systems: Review of Systems: Constitutional: Denies fever or chills. [] Musculoskeletal: Reports right thumb and right elbow pain Integument: Denies rash. [] Neurologic: Denies headache, focal weakness or sensory changes. [] Psychiatric: Denies depression or anxiety. [] Heart Score: C/O Chest Pain: N/A Risk Factors: Risk Factors: DM, Current or recent (<one month) smoker, HTN, HLP, family history of CAD, obesity. Risk Scores: Score 0 - 3: 2.5% MACE over next 6 weeks - Discharge Home Score 4 - 6: 20.3% MACE over next 6 weeks - Admit for Clinical Observation Score 7 - 10: 72.7% MACE over next 6 weeks - Early Invasive Strategies Allergies: Allergies: Allergies Coded Allergies Type Severity Reaction Last Updated Verified Penicillins Allergy Intermediate 10/15/21 Yes amoxicillin Allergy Intermediate 10/15/21 Yes Physical Exam: PE: Constitutional: Well developed, well nourished, no acute distress, non-toxic appearance. [] Skin: Warm, dry, no erythema, no rash. [] Back: No tenderness, no CVA tenderness. [] Extremities: Right elbow and right thumb with no obvious deformity, full range of motion to the right elbow and right thumb. Adequate radial, medial, ulnar sensation to the right fingers. +2 right radial pulse. Cap refill less than 2 seconds to right fingers Neurologic: Alert and oriented X 3, normal motor function, normal sensory function, no focal deficits noted. [] Psychologic: Affect normal, judgement normal, mood normal. [] EKG: EKG: [] Radiology/Procedures: Radiology/Procedures: []PROCEDURE: FINGER(S) RIGHT Three-view right thumb and 3 view right elbow HISTORY: Pain after lifting plywood Three-view right thumb: Collimated AP lateral oblique views The visualized osseous structures appear normal. IMPRESSION: Negative examination. End of impression 3 view right elbow: AP lateral oblique views The visualized osseous structures appear normal. IMPRESSION: No acute findings. Electronically signed by: Nabil Akbar III, MD (10/15/2021 6:58 PM) [facility] DICTATED and SIGNED BY: NABIL AKBAR III, MD DATE: 10/15/21 [id number] 0 Course & Med Decision Making: Course & Med Decision Making Pain that beganPertinent Labs and Imaging studies reviewed. (See chart for details) This is a 41-year-old female patient presented to the ED today with right thumb pain and right after lifting plywood today. Right thumb x-ray and right elbow x-rays interpreted by radiologist are negative for any acute findings, discharged to home. Ice elevation encouraged. OTC pain relievers. Follow-up with orthopedic doctor in 1 week if pain persists Lonion Disclaimer: Meagan Disclaimer: This electronic medical record was generated, in whole or in part, using a voice recognition dictation system. Departure Departure Impression: Primary Impression: Sprain of hand, thumb, right Qualified Codes: S63.621A - Sprain of interphalangeal joint of right thumb, initial encounter Additional Impression: Sprain of elbow, right Qualified Codes: S53.401A - Unspecified sprain of right elbow, initial enc ounter Disposition: HOME / SELF CARE / HOMELESS Condition: STABLE Referrals: NO PCP (PCP) MÓNICA EARLY Jr. DO follow up in one week Patient Instructions: Finger Sprain, [id number], Joint Sprain Additional Instructions: You were evaluated in the emergency room, your right thumb x-rays of the right elbow x-rays are negative for any acute findings. Try to ice and elevate the extremity. Take [id number] pain medicine as needed. Follow-up with your own doctor in 1 to 2 weeks Scripts Diclofenac Potassium (DICLOFENAC POTASSIUM) 50 Mg Tablet 1 TAB PO BID, #14 TAB 1 Refill Prov: DAVONTEMANISH APRN 10/15/21 ROSAREGINALDMANISH APRN Oct 15, 2021 17:56
--- NOTE | 2021-10-15 19:00 | RAD ---
Three-view right thumb and 3 view right elbow HISTORY: Pain after lifting plywood Three-view right thumb: Collimated AP lateral oblique views The visualized osseous structures appear normal. IMPRESSION: Negative examination. End of impression 3 view right elbow: AP lateral oblique views The visualized osseous structures appear normal. IMPRESSION: No acute findings. Electronically signed by: Lee Akbar III, MD (10/15/2021 6:58 PM) [facility]
[2021-10-15] MEDS ORDERED: DICL50TA2 PO (19:09)
== END 2021-10-15 19:25 | disposition home or self-care (01) ==
LOC: ER 15:14
DX: S63.621A Sprain of interphalangeal joint of right thumb, initial encounter (principal); S53.401A Unspecified sprain of right elbow, initial encounter; F17.200 Nicotine dependence, unspecified, uncomplicated; X50.9XXA Other and unspecified overexertion or strenuous movements or postures, initial encounter; Y93.89 Activity, other specified; Y92.89 Other specified places as the place of occurrence of the external cause; Y99.8 Other external cause status
CPT/HCPCS: 73080; 73140; 99284